=== PATIENT | female | born 1975 | race Caucasian/White ===

== ENCOUNTER 2024-05-29 10:06 | Inpatient (IN) ==
--- OUTSIDE RECORDS SUMMARY | 2024-05-29 10:13 | External Medical Summary | Summary of Care ---
Author Name Unknown Organization [facility] Address [address] [place] [address] Phone [phone] Care Team Providers Care Health And Wellness Advisor Name Role Phone Aiyana Bone MD Primary Care Provider + Reason for Referral * Precert (Within 10 days (routine)) - Pending Review Specialty Diagnoses / Procedures Referred By Contac t Referred To Contact Radiology Diagnoses Chest tightness Family history of premature CAD Procedures CT CARDIAC CALCIUM SCORE ONLY - CARD Iman Marroquin PA-C [address] [place] [id number] Phone: tel: fax: Referral ID Status Reason Start Date Expiration Date Visits Requested Visits Authorized [id number] Pending Review Precert 04/30/2024 [id number] Reason for Visit * Reason Comments Follow Up * Evaluate & Treat - Unlimited Visits (Within 30 days (routine)) - Authorized Specialty Diagnoses / Procedures Referred By Contact Referred To Contact Cardiovascular Medicine / Cardiology Diagnoses Family history of premature CAD Aiyana Bone MD [address] [place] [address] Phone: tel: fax: Referral ID Status Reason Start Date Expiration Date Visits Requested Visits Authorized [id number] Authorized Specialty Services Required 4 [phone] Encounter Details Date Type Department Care Team (Late st Contact Info) Description 04/29/2024 3:00 PM EST Office Visit Cardiology, [address] [place] [address] Iman Marroquin PA-C [address] [place] [address] Chest tightness*; Family history of premature CAD Allergies No known active allergiesdocumented as of this encounter (statuses as of 04/29/2024) Medications CALCIUM & MAGNESIUM CARBONATES 311-232 MG PO TABS Take by mouth . Active Multiple Vitamin (MULTI VITAMIN DAILY) TABS Take by mouth. Activ e Vitamin D, Cholecalciferol , 25 MCG (1000 UT) CAPS Take by mouth daily . Active Fish Oil 1000 MG Oral Capsule Take 1 Capsule by mouth in the morning. Active Vitamin C 1000 MG Oral Tablet Take 1 Tablet by mouth in the morning. Active Progesterone 200 MG/G TOP Cream Apply topically to affected area at bedtime. Apply one pump to inner wrists at bedtime. Active Fluticasone Propionate 50 MCG/ACT Nasal Suspension (Flonase)Indica tions:Acute sinusitis, recurrence not specified, unspecified location Administer 2 Sprays into each nostril in the morning. 9.9 mL 04/23/19 24 Active Triamcinolone Acetonide 0.1 % External Ointment (Aristocort)Ind ications:Perine al itching, female Apply topically to affected area 2 times a day. Apply to perineum 30 g 06/16/19 24 Active Azithromycin 250 MG Oral Tablet (Zithromax Z-Ye)Indicatio ns:Bronchitis, complicated Take two tablets by mouth on first day, then 1 tablet daily until gone 6 Tablet 02/10/20 24 025 Discontinued documented as of this encounter (statuses as of 04/29/2024) Active Problems Problem Noted Date Diagnosed Date Family history of premature CAD 11/06/2021 Atrial septal aneurysm 08/13/2021 documented as of this encounter (statuses as of 04/29/2024) Resolved Problems Problem Noted Date Diagnosed Date Resolved Date Vaginal itching 03/24/2019 08/13/2021 Overview (03/24/2019): X 5 years, left labial itching. Antepartum abnormal glucose tolerance of mother 02/28/2014 03/24/2019 Overview (02/28/2014): 1 hour Glucola 135 mg/ dl Declines 3 hour OGTT Advanced maternal age, primi , antepartum 02/01/2014 03/24/2019 Overview (02/01/2014): NOB at 35.6 weeks, transfer from [facility] due to breech presentation No pap smear or cultures from 1st trimester, declines to have them today No Anatomy scan was done at 20 weeks, accepts to have it done today due to also measuring small for GA NO GDM screening at 28 weeks, accepts to have it done today RH negative, declines Rhogam B rh negative, AB screen neg H&H , Plat 169 RPP: NR, HBCAG: Neg, U/A: WNL, HIV declined, QUad screening declijed, GDM screen declined AMA: no screening test was done Desired natural but accepts Csection Rh negative, antepartum 02/01/201403/09 Overview (07/10/2015): Has not recevied Rhgam at 28 weeks, Rh positive, declines Rhogam ICD-10 update of inactive term Breech presentation with problem 02/01/2014 03/24/2019 Overview (02/22/2014): Scheduled C section plan attached to current episode 02/22/2014 documented as of this encounter (statuses as of 04/29/2024) Immunizations Name Administration Dates Next Due COVID-19 mRNA, LNP-s, No Pre serve, 2-Dose Series ([employer]) 02/21/2021,07/28/2020,07/07/2020 Seasonal Influenza, PF, 6 M & above, IM , (FluLaval or Fluzone) 11/26/2021 TDAP (age 10 and older)(Boostrix) 07/16/2021 documented as of this encounter Social History Tobacco Use Types Packs/Day Years Used Date Smoking Tobacco: Never Smokeless Tobacco: Never Alcohol Use Standard Drinks/Week Comments Yes 0 (1 standard drink = 0.6 oz pur e alcohol) 1-2 drinks/day PHQ-2 Answer Date Recorded PHQ Adult Total Score 0 12/31/2023 Hunger Vital Sign Answer Date Recorded Worried About Running Out of Food in the Last Ye ar Never true 05/03/2019 Ran Out of Food in the Last Year Never true 05/03/2019 Comments No Sex and Gender Information Value Date Recorded Sex Assigned at Female 05/03/2019 12:46 PM EST Legal Sex Female 11:45 AM EDT Gender Identity Female 05/03/2019 12:46 PM EST Sexual Orientation Straight 05/03/2019 12 :46 PM EST 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 Intermittent palpitations, correlating with benign ventricular ectopy (rare) and SVT (rare) on ZIO 2. Atrial septal aneurysm on echo without evidence of shunt 3. Family history of premature coronary artery disease/sudden cardiac HPI: Charline Galarza is a 48 year old female who presents for cardiology follow up. Presents today overall feeling well. Notes occasional episodes of chest tightness, radiates to back. Is constant and can occur for weeks at a time. Mainly occurs at rest. Denies palpitations, shortness of breath, edema, PND, orthopnea, lightheadedness, syncope. Notes that she does weight training re gularly. Was cross country skiing recently and felt great. Mainly eats healthy diet. Nonsmoker. She is concerned about her cardiac health due to her family history. Notes aunt had elevated lipoprotein a. Family history: Father from [place] at age 44 Mother from pancreatic cancer at age 56 REVIEW OF SYSTEMS: See HPI for pertinent positives. All others negative other than those noted in the HPI. CONSTITUTIONAL: No change in weight, No weakness, No fatigue and No fevers, No sweats or chills. PULMONARY: No cough, sputum, or hemoptysis, No wheezing, No shortness of breath and No recent change in breathing. CARDIOVASCULAR: No chest pain, No dyspnea on exertion, No edema, No palpitations and No syncope. GASTROINTESTINAL: No abdominal pain, No change in bowel habits, No significant heartburn, No nausea, No vomiting, No diarrhea, No constipation, No blood in stools or black tarry stools. No dysphagia. HEMATOLOGIC: No abnormal bleeding and No bruising. NEUROLOGICAL: Normal balance, No headaches and No weakness. Review of patient's allergies indicates: No Known Allergies Current Outpatient Medications Medication Sig Dispense Refill Multiple Vitamin (MULTI VITAMIN DAILY) TABS Take by mouth. Vitamin D, Cholecalciferol, 25 MCG (1000 UT) CAPS Take by mouth daily . Fish Oil 1000 MG Oral Capsule Take 1 Capsule by mouth in the morning. Vitamin C 1000 MG Oral Tablet Take 1 Tablet by mouth in the morning. Progesterone 200 MG/G TOP Cream Apply topically to affected area at bedtime. Apply one pump to inner wrists at bedtime. Fluticasone Propionate 50 MCG/ACT Nasal Suspension (Flonase) Administer 2 Sprays into each nostril in the morning. 9.9 mL 0 Triamcinolone Acetonide 0.1 % External Ointment (Aristocort) Apply topically to affected area 2 times a day. Apply to perineum 30 g 0 CALCIUM & MAGNESIUM CARBONATES 311-232 MG PO TABS Take by mouth . (Patient not taking: Reported on 02/10/2024) No current facility-administered medications for this visit. Past Medical History: Diagnosis Date Atrial septal aneurysm 08/13/2021 Family history of pancreatic cancer 01/28/2024 Recommend MRI of pancreas in Jan 2025 Gallbladder polyp 01/28/2024 due for surveillance US in Jan 2025 Family History Problem Relation Name Age of Onset Cancer Mother 56 pancreatic cancer Heart attack Father 44 Stroke Grandmother (Maternal) 40s Diabetes Grandfather (Maternal) DM in his 70's Heart attack Grandmother (Paternal) 60s Prostate cancer Grandfather (Paternal) 90s Breast Cancer Aunt (Maternal) great aunt Social History Socioeconomic History Marital status: Occupational History Occupation: artist Tobacco Use Smoking status: Never Smokeless tobacco: Never Vaping Use Vaping status: Never Used Substance and Sexual Activity Alcohol use: Yes Comment: 1-2 drinks/day Drug use: No Sexual activity: Yes Partners: Male control/protection: Condom Social Needs Food Insecurity: No Food Insecurity (05/03/2019) Hunger Vital Sign Worried About Running Out of Food in the Last Year: Never true Ran Out of Food in the Last Year: Never true OBJECTIVE/PHYSICAL EXAMINATION: BP 138/88 | Pulse 80 | Wt 70.3 kg (155 lb) | BMI 25.79 kg/m | BSA 1.8 m Wt Readings from Last 3 Encounters: 04/29/24 70.3 kg (155 lb) 02/10/24 68.5 kg (151 lb) 01/28/24 68 kg (150 lb) General: No acute distress. A+Ox3. HEENT: Normocephalic. Atraumatic. PERRL. EOMI. Conjunctiva and sclera clear. NECK: No carotid bruits. No JVD. Carotid upstrokes are brisk. Heart: RRR. S1 and S2 noted. No murmur. No rubs or gallops. PMI non displaced. Lungs: Clear to auscultation. No wheezes. No rhonchi. No rales. Abdomen: Normal bowel sounds. Soft. Nontender. No masses or organomegaly. No abdominal bruits. Extremities: No edema. No clubbing or cyanosis. Pulses: radial=2/4, posterior tibial=2/4, dorsalis pedis = 2/4. NEURO: No focal deficits. PSYCH: Appropriate affect and insight. DATA Labs & Imaging Reviewed Below: EKG 04/29/24 NSR with sinus arrhythmia, 78 bpm Limited Echo 10/14/21 Microcavitation study performed. The primary indication after review was deemed appropriate and the examination was performed. Negative bubble study. No interatrial shunt present. o 07/2021 Patient had a min HR of 55 bpm, max HR of 167 bpm, and avg HR of 91 bpm. Predominant underlying rhythm was Sinus Rhythm. 1 run of Supraventricular Tachycardia occurred lasting 7 beats with a max rate of 167 bpm (avg 152 bpm). Isolated SVEs were rare (<1.0%), SVE Couplets were rare (<1.0%), and SVE Triplets were rare (<1.0%). Isolated VEs were rare (<1.0%), and no VE Couplets or VE Triplets were present. agree with above. No arrhythmias. No symptoms reported. Echo 07/18/21 The examination is adequate to evaluate the referral indication. Sinus rhythm / sinus tachycardia with rate in the range of 92-108 bpm present during the echocardiogram. The LV wall thickness is normal. The left ventricular wall motion is normal. The qualitative LV ejection fraction is 55-59% (normal). The left ventricular diastolic function is normal. The aortic valve has three leaflets. Mild aortic valve sclerosis is present. Aortic stenosis is absent. ASSESSMENT/PLAN: 48 year old female 1. Chest tightness 2. Family history of premature CAD - presents with occasional chest tightness that can occur for weeks at a time, possibly musculoskeletal - due to chest tightness and family history of premature CAD, recommend cardiac CT calcium score for risk assessment - cholesterol well controlled, A1C 5.3 on last labs - discussed conservative measures for muscle pain - no changes in medications today DISPOSITION: Follow up 1 year or sooner if symptoms worsen/fail to improve. All questions were answered to the patients satisfaction. Patient advised to report to ED with any and all emergencies. The patient agrees to the above plan and will call with additional questions or concerns. Iman Marroquin PA-C Cardiology, [address] [address] I spent a total of 40 minutes on the date of service in preparation, delivery, and documentation ofthe care provided to Charline Galarza excluding any time spent in the performance of separately billedservices. This chart was completed in part utilizing [employer] Speech Voice Recognition Software. Grammatical errors, random word insertions, pronoun errors, and incomplete sentences are an occasional consequence of this system due to software limitations, ambient noise, and hardware issues. Any formal questions or concerns about the content, text, or information contained within the body of this dictation should be directly addressed to the provider for clarification. documented in this encounter Procedure Notes * Sonu Yang MD - 04/29/2024 3:06 PM ESTAssociated Order(s): EKG REASON FOR STUDY: routine;routine CONCLUSIONS: Normal sinus rhythm with sinus arrhythmia Normal ECG When compared with ECG of 16-Jul-2021 13:37, No significant change was found Ventricular Rate: 78 Atrial Rate: 78 OK Interval: 116 QRS Duration: 88 QT/QTc: 368/419 ms P-R-T Vaughan: 80 : 85 : 83 degrees documented in this encounter Nursing Notes * Malathi Green CMA - 04/29/2024 2:58 PM EST Examination Room: 7 Name: Charline Galarza Date of : (1975) Reason for Visit: 1 year Interim Hospitalization(s): none Problems/Concerns: denied Chest Pain/SOB: post nasal drip, feeling in chest .denied SOB [facility] is a way you can talk to your provider online through e-mail. Would you like to sign up? I can activate it for you? ALREADY ACTIVE Patient was instructed to not get up on the exam table until directed and assisted by their provider; patient is to remain seated in the chair/ wheelchair/ exam table for fall prevention and safety reasons. Patient is aware to have assistance to step down off exam table with personnel. Patient voiced full comprehension of instructions. documented in this encounter Plan of Treatment Upcoming Encounters Date Type Department Care Team (Late st Contact Info) Description 06/22/2024 2:00 PM EDT Office Visit Gynecology/Obstetrics Sho Menendez [address] [place] [address] BackerAna CRNP [address] [place] [address] 07/04/2024 2:00 PM EDT Office Visit Gastroenterology, [facility] [address] [facility] [place] [address] Capo Irizarry CRNP [address] [facility] [place] [address] 05/26/2025 10:00 AM EDT Office Visit Cardiology, [facility] [address] [facility] [place] [address] Iman Marroquin PA-C [address] [facility] [place] [address] Scheduled Orders Name Type Priority Associated Diagnoses Orde r Schedule CT CARDIAC CALCIUM SCORE ONLY - CARD Medical Imaging Routine Chest tightness Family history of premature CAD Expected: 04/30/2024, Expires: 05/27/2025 Scheduled Procedures Name Priority Associated Diagnoses Date/Ti me COLONOSCOPY FLEXIBLE PROXIMA L DIAGNOSTIC Recall History of colonic polyps Health Maintenance Due Date Last Done Comments Hepatitis B Vaccine (1 of 3 - 19+ 3-dose series) 12/21/1994 HPV/Co-Test 12/21/2005 Cologuard 12/21/2020 Fecal Occult Blood Test 12/21/2020 Sigmoidoscopy 12/21/2020 Cervical Cancer Screening 03/24/2022 Pap Smear 03/24/2022 03/24/2019, 04/13/2014 COVID-19 Vaccine ( season) 2023 02/21/2021, 07/28/2020, 07/07/2020 Influenza Vaccine (FLU shot) (#1) 2023 11/26/2021 Mammogram 06/21/2024 06/22/2023, 09/0 08/2022, 11/04/2022, Additional history exists Depression Screening 12/30/2024 12/31/2023 Diabetes Screening 01/17/2027 01/18/2024, 0 10/06/2023, 11/18/2022, Additional history exists Colonoscopy 01/16/2028 01/15/2023, 01/15/2023 Colorectal Cancer Screening 01/16/2028 Lipid Panel 01/17/2029 01/18/2024, 11/07, 12/27/2020 DTap/Tdap Vaccines (2 - Td or Tdap) 07/17/2031 07/16/2021 RETIRED - COLONOSCOPY-EVERY 5 YRS AGES 18-100 Discontinued 01/15/2023, 01/15/2023 HPV (Gardasil) Vaccine Aged Out No lo nger eligible based on patient's age to complete this topic MENINGOCOCCAL (MENACTRA/MENVEO) Aged Out No longer eligible based on patient's age to complete this topic Meningitis B Vaccine (Bexsero/Trumemba) Aged Out No longer eligible based on patient's age to complete this topic Pneumococcal Vaccine: Pediatrics (0 to 5 Years) and At-Risk Patients (6 to 18 Years and 19+ Years) Aged Out No longer eligib le based on patient's age to complete this topic documented as of this encounter Medical Devices Not on filedocumented as of this encounter Procedures Procedure Name Priority Date/Time Associated Diagnosis Comments OK ECG ROUTINE ECG W/LEAST 12 LDS W/I&R Routine 04/29/2024 3:06 PM EST Chest tightness Family history of premature CAD documented in this encounter Results * EKG (04/29/2024 3:06 PM EST) 04/29/2024 3:06 PM EST Narrative Procedure Note Sonu Yang MD - 04/29/2024 3:06 PM EST REASON FOR STUDY: routine;routine CONCLUSIONS: Normal sinus rhythm with sinus arrhythmia Normal ECG When compared with ECG of 16-Jul-2021 13:37, No significant change was found Ventricular Rate: 78 Atrial Rate: 78 OK Interval: 116 QRS Duration: 88 QT/QTc: 368/419 ms P-R-T Vaughan: 80 : 85 : 83 degrees us Iman Marroquin PA-C EKG Final R esult [facility] CARDIOLOGY documented in this encounter Visit Diagnoses Diagnosis Chest tightness- Primary Other chest pain Family history of premature CAD Family history of ischemic heart disease documented in this encounter Care Teams Health And Wellness Advisor Relationship Specialty Start Date End Date Aiyana Bone MD [address] [place] [address] PCP - General Internal Medicine 05/03/19 documented as of this encounter"
--- OUTSIDE RECORDS SUMMARY | 2024-05-29 10:13 | External Medical Summary | Summary of Care ---
Author Name Unknown Organization [facility] Address [address] [place] [address] Phone [phone] Care Team Providers Care Supplier Quality Engineering Manager Name Role Phone Aiyana Bone MD Primary Care Provider + Reason for Visit * Reason Comments Congestion Cough Mostly at night Sore Throat Fatigue Encounter Details Date Type Department Care Team ([facility] st Contact Info) Description 02/10/2024 1:15 PM EST [facility] [address] [place] [address] Mary House PA-C [address] [place] [address] Bronchitis, complicated* Allergies No known active allergiesdocumented as of this encounter (statuses as of 02/10/2024) Medications CALCIUM & MAGNESIUM CARBONATES 311-232 MG PO TABS Take by mouth . Active Multiple Vitamin (MULTI VITAMIN DAILY) TABS Take by mouth. Act doretha Vitamin D, Cholecalciferol, 25 MCG (1000 UT) [...] Active Fluticasone Propionate 50 MCG/ACT Nasal Suspension (Flonase)Indicat ions:Acute sinusitis, recurrence not specified, unspecified location Administer 2 Sprays into each nostril in the morning. 9.9 mL 4 Active Triamcinolone Acetonide 0.1 % External Ointment (Aristocort)Genna cations:Perineal itching, female Apply topically to affected area 2 times a day. Apply to perineum 30 g 4 Active Azithromycin 250 MG Oral Tablet (Zithromax Z-Ye)Indication s:Bronchitis, complicated Take two tablets by mouth on first day, then 1 tablet daily until gone 6 Tablet 4 Active documented as of this encounter (statuses as of 02/10/2024) Active Problems Problem Noted Date Diagnosed Date Family history of premature CAD 11/06/2021 Atrial septal aneurysm 08/13/2021 documented as of this encounter (statuses as of 02/10/2024) Resolved Problems Problem Noted Date Diagnosed Date Resolved Date Vaginal itching 03/24/2019 08/13/2021 Overview (03/24/2019): X 5 years, left labial itching. Antepartum abnormal glucose tolerance of mother 02/28/2014 03/24/2019 Overview (02/28/2014): 1 hour Glucola 135 mg/ dl Declines 3 hour OGTT Advanced maternal age, primi , antepartum 02/01/2014 03/24/2019 Overview (02/01/2014): NOB at 35.6 weeks, transfer from [facility] due to breech presentation No pap smear [...] as of this encounter (statuses as of 02/10/2024) Immunizations Name Administration Dates Next Due COVID-19 mRNA, LNP-s, No Pre serve, 2-Dose Series (Pfizer) 02/21/2021,07/28/2020,07/07/2020 Seasonal Influenza, PF, 6 M & above, IM , (FluLaval or Fluzone) 11/26/2021 TDAP (age 10 and older)(Boostrix) 07/16/2021 documented as of this encounter Social History Tobacco Use Types Packs/Day Years Used Date Smoking Tobacco: Never Smokeless Tobacco: Never Tobacco Cessation:Counseling Given: Not Answered Alcohol Use Standard Drinks/Week Comments Yes 0 [...] Sign Reading Time Taken Comments Blood Pressure 116/62 02/10/2024 1:26 PM EST Pulse 103 02/10/2024 1:26 PM EST Temperature 36.7 C (98.1 F) 02/10/2024 1:26 PM ES T Respiratory Rate 18 02/10/2024 1:26 PM EST Oxygen Saturation 99% 02/10/2024 1:26 PM EST Inhaled Oxygen Concentration - - Weight 68.5 kg (151 lb) 02/10/2024 1:26 PM EST Height 165.1 cm (5' 5") 02/10/2024 1:26 PM EST Body Mass Index 25.13 02/10/2024 1:26 PM EST documented in this encounter Progress Notes * Mary House PA-C - 02/10/2024 8:58 PM EST Subjective Charline Galarza is a 48 year old female that presents for Congestion, Cough (Mostly at night ), Sore Throat, and Fatigue 48 y/o female presents c/o cough, congestion, sore throat, fatigue x 4 days. Pt states her son recently had walking pneumonia, is just getting over it, and now she started getting sick. She is worried she is also getting the pneumonia, so she wanted to get seen right away. Cough is sometimes productive of mucus. She has been using OTC zinc without relief. She denies known fevers, chills, chest pain, SOB, nausea, vomiting, diarrhea. Son was treated with zpack and amoxicillin. Allergies and medications reviewed and verified. Objective BP 116/62 | Pulse 103 | Temp 36.7 C (98.1 F) (Tympanic) | Resp 18 | Ht 1.651 m (5' 5") | Wt 68.5 kg (151 lb) | LMP 01/25/2024 | SpO2 99% | BMI 25.13 kg/m | BSA 1.77 m Body mass index is 25.13 kg/m. BP Readings from Last 3 Encounters: 02/10/24 116/62 01/28/24 96/68 01/11/24 122/74 Wt Readings from Last 3 Encounters: 02/10/24 68.5 kg (151 lb) 01/28/24 68 kg (150 lb) 01/11/24 68.2 kg (150 lb 4.8 oz) Physical Exam Vitals and nursing note reviewed. Constitutional: General: She is not in acute distress. Appearance: She is ill-appearing. HENT: Head: Normocephalic and atraumatic. Right Ear: Tympanic membrane, ear canal and external ear normal. Left Ear: Tympanic membrane, ear canal and external ear normal. Nose: Congestion present. Mouth/Throat: Mouth: Mucous membranes are moist. Pharynx: No oropharyngeal exudate or posterior oropharyngeal erythema. Eyes: General: No scleral icterus. Extraocular Movements: Extraocular movements intact. Conjunctiva/sclera: Conjunctivae normal. Pupils: Pupils are equal, round, and reactive to light. Cardiovascular: Rate and Rhythm: Normal rate and regular rhythm. Heart sounds: No murmur heard. No friction rub. No gallop. Pulmonary: Effort: Pulmonary effort is normal. Breath sounds: No stridor. Rhonchi present. No wheezing. Musculoskeletal: Cervical back: Neck supple. Lymphadenopathy: Cervical: No cervical adenopathy. Skin: General: Skin is warm and dry. Findings: No rash. Neurological: General: No focal deficit present. Mental Status: She is alert and oriented to person, place, and time. Psychiatric: Mood and Affect: Mood normal. Behavior: Behavior normal. Assessment and plan 1. Bronchitis, complicated - Azithromycin 250 MG Oral Tablet (Zithromax Z-Ye); Take two tablets by mouth on first day, then 1tablet daily until gone Dispense: 6 Tablet; Refill: 0 -given exposure will cover with zpack for PN -rest, fluids -OTC medications as you feel they help -to ER with acute worsening symptoms Follow up Follow Up: Return if symptoms worsen or fail to improve. Total time today including reviewing chart before the visit, pertinent labs, imaging reports, face to face time, and documentation time was 20 minutes. The above was discussed and understanding was expressed. Mary House PA-C documented in this encounter Nursing Notes * Izzy Painter MED ASSIST - 02/10/2024 1:28 PM EST Charline Galarza is a 48 year old female who presents to walk-in clinic today complaining of Chief Complaint Patient presents with Congestion Cough Mostly at night Sore Throat Fatigue Brief history:pt is here with chest congestion- cough mostly at night, sore throat and tiredness. Son had pneumonia 01/30/2024 Onset/duration Thursday . Tried zinc Effectiveness some Patient is accompanied by no one for today's visit. documented in this encounter Plan of Treatment Upcoming Encounters Date Type Department Care Team (Late st Contact Info) Description 04/29/2024 3:00 PM EST Office Visit Cardiology, [facility] [address] [place] [address] Iman Marroquin PA-C [address] [place] [address] 06/22/2024 2:00 PM EDT Office Visit Gynecology/Obstetrics [facility] [address] [place] [address] Ana Duarte CRNP [address] [place] [address] 07/04/2024 2:00 PM EDT Office Visit Gastroenterology, [facility] [address] [place] [address] Capo Irizarry CRNP [address] [place] [address] Scheduled Procedures Name Priority Associated Diagnoses Date/Ti [...] 5 Years) and At-Risk Patients (6 to 64 Years) Aged Out No longer eligible based on patient's age to complete this topic documented as of this encounter Medical Devices Not on filedocumented as of this encounter Visit Diagnoses Diagnosis Bronchitis, complicated- Primary Bronchitis, not specified as acute or chronic documented in this encounter Care Teams Supplier Quality Engineering Manager Relationship Specialty Start Date End Date Aiyana Bone MD [address] [place] [address] PCP - General Internal Medicine 05/03/19 documented as of this encounter
--- OUTSIDE RECORDS SUMMARY | 2024-05-29 10:13 | External Medical Summary | Summary of Care ---
Author Name Unknown Organization [facility] Address [address] [place] [address] Phone [phone] Care Team Providers Care Account Services Coordinator Name Role Phone Aiyana Bone MD Primary Care Provider + Reason for Visit * Reason Onset Date Comments Advice 02/09/2024 Appointment 02/09/2024 Encounter Details Date Type Department Care Team (Late st Contact Info) Description 02/09/2024 Telephone General Internal Medicine [facility] [address] [place] [address] Aiyana Bnoe MD [address] [place] [address] Advice; Appointment Allergies No known active allergiesdocumented as of this encounter (statuses as of 02/11/2024) Medications CALCIUM & MAGNESIUM CARBONATES 311-232 MG [...] Apply to perineum 30 g 4 Active documented as of this encounter (statuses as of 02/11/2024) Active Problems Problem Noted Date Diagnosed Date Family history of premature CAD 11/06/2021 Atrial septal aneurysm 08/13/2021 documented as of this encounter (statuses as of 02/11/2024) Resolved Problems Problem Noted Date Diagnosed Date Resolved Date Vaginal itching 03/24/2019 08/13/2021 Overview (03/24/2019): X 5 years, left labial itching. Antepartum abnormal glucose tolerance of mother 02/28/2014 03/24/2019 Overview (02/28/2014): 1 hour Glucola 135 mg/ dl Declines 3 hour OGTT Advanced maternal age, primi , antepartum 02/01/2014 03/24/2019 Overview (02/01/2014): NOB at 35.6 weeks, transfer from [employer] [facility] due to breech presentation No pap smear [...] as of this encounter (statuses as of 02/11/2024) Immunizations Name Administration Dates Next Due COVID-19 [...] on file documented as of this encounter Miscellaneous Notes * Telephone Encounter - Yolanda Constantino OSA - 02/11/2024 5:41 PM EST [facility] to [facility] on [facility]. * Telephone Encounter - Jyotsna Andrea OSA - 02/10/2024 8:59 AM EST No appts, assisted pt in reserving 1 pm time at [facility] in [place] * Telephone Encounter - Alysia Staples CMA - 02/09/2024 9:58 AM EST Patient needs acute visit to be assessed and have lungs listened to. * Telephone Encounter - Toya Harris OSA - 02/09/2024 9:13 AM EST Patient calling stating she is feeling sick, sore throat, cough. Has been taking care of her child who was diagnosed with pneumonia. No acute appts. She would like advice from a nurse if she should be seen. Please advise. documented in this encounter Plan of Treatment Upcoming Encounters Date Type Department Care Team (Late st Contact Info) Description 04/29/2024 3:00 PM EST Office Visit Cardiology, [facility] [address] [place] [address] Iman Marroquin PA-C [address] [facility] [place] [address] 06/22/2024 2:00 PM EDT Office Visit Gynecology/Obstetrics [facility] [address] [place] [address] Ana Duarte CRNP [address] [place] [address] 07/04/2024 2:00 PM EDT Office Visit Gastroenterology, [facility] [address] [place] [address] Capo Irizarry CRNP [address] [place] [address] Scheduled Procedures Name Priority Associated Diagnoses Date/Ti [...] shot) (#1) 2023 11/26/2021 Mammogram 06/21/2024 06/22/2023, 0908/2022, 11/04/2022, Additional history exists Depression Screening 12/30/2024 [...] Not on filedocumented as of this encounter Care Teams Account Services Coordinator Relationship Specialty Start Date End Date Aiyana Bone MD [address] [place], [place] [address] PCP - General Internal Medicine 05/03/19 documented as of this encounter
--- OUTSIDE RECORDS SUMMARY | 2024-05-29 10:13 | External Medical Summary | Summary of Care ---
Author Name Unknown Organization [facility] Address [address] [place] [address] Phone [phone] Care Team Providers Care Certified Nurse Operating Room Name Role Phone Aiyana Bone MD Primary Care Provider + Reason for Visit * Auth/Cert Specialty Diagnoses / Procedures Referred By Elias fajardo Referred To Contact Diagnoses Pain localized to upper abdomen Pain localized to upper abdomen [R10.10] Procedures EGD, W/ENDOSCOPIC US ESOPHAGOGASTRODUODENOSCOPY (EGD), FLEXIBLE, TRANSORAL, ENDOSCOPIC ULTRASOUND Juana Parker MD [address] [place] [address] Phone: tel: fax: ENDO OSS, Endoscopy Room [facility] [address] [place] [place] [address] Phone: tel: Referral ID Status Reason Start Date Expiration Date Visits Re quested Visits Authorized [id number] Encounter Details Date Type Department Care Team (Latest Contact Info) Description 01/28/2024 9:08 AM EST - 01/28/2024 11:09 AM [facility] Hospital Encounter ENDO OSSC, Endoscopy Room [facility] [address] [place] [place] [phone] Juana Parker MD [address] [place] [address] Various: UGI,UEUS Discharge Disposition: Home - Self Care Allergies No known active allergiesdocumented as of this encounter (statuses as of 01/28/2024) Medications CALCIUM & MAGNESIUM CARBONATES 311-232 MG [...] as of this encounter (statuses as of 01/28/2024) Active Problems Problem Noted Date Diagnosed Date Family history of premature CAD 11/06/2021 Atrial septal aneurysm 08/13/2021 documented as of this encounter (statuses as of 01/28/2024) Resolved Problems Problem Noted Date Diagnosed Date Resolved Date Vaginal itching 03/24/2019 08/13/2021 Overview (03/24/2019): X 5 years, left labial itching. Antepartum abnormal glucose tolerance of mother 02/28/2014 03/24/2019 Overview (02/28/2014): 1 hour Glucola 135 mg/ dl Declines 3 hour OGTT Advanced maternal age, primi , antepartum 02/01/2014 03/24/2019 Overview (02/01/2014): NOB at 35.6 weeks, transfer from [facility] due to breech presentation No pap smear [...] as of this encounter (statuses as of 01/28/2024) Immunizations Name Administration Dates Next Due COVID-19 mRNA, LNP-s, No Pre serve, 2-Dose Series (Sodraft) 02/21/2021,07/28/2020,07/07/2020 Seasonal Influenza, PF, 6 M & [...] Sign Reading Time Taken Comments Blood Pressure 96/68 01/28/2024 10:48 AM EST Pulse 88 01/28/2024 10:48 AM EST Temperature 36.2 C (97.2 F) 01/28/2024 10:[address] Respiratory Rate 17 01/28/2024 10:48 AM EST Oxygen Saturation 99% 01/28/2024 10:48 AM EST Inhaled Oxygen Concentration - - Weight 68 kg (150 lb) 01/28/2024 9:24 AM EST Height 165.1 cm (5' 5") 01/28/2024 9:24 AM EST Body Mass Index 24.96 01/28/2024 9:24 AM EST documented in this encounter H&P Notes * Juana Parker MD - 01/28/2024 9:36 AM EST Endoscopy Pre-Procedure Assessment Name: Charline Galarza Date: 01/28/2024 Time: 9:36 AM Procedure(s): Endoscopic Ultrasound; with Indication(s) of abdominal pain Endoscopy Pre-Procedure Assessment: Prior to the procedure, the patient was identified. The patient's history, medications and allergies were reviewed as per the Anesthesia Assessment. The patient is competent. The risks and benefits of the proposed procedure and the planned sedation were discussed with the patient. All questions were answered and informed consent for the procedure was obtained. Ht 1.651 m (5' 5") | Wt 68 kg (150 lb) | LMP 12/25/2023 (Exact Date) | BMI 24.96 kg/m | BSA 1.77 m Review of patient's allergies indicates: No Known Allergies Prior to Admission medications Medication Sig Last Dose Discont. Fluticasone Propionate 50 MCG/ACT Nasal Suspension (Flonase) Administer 2 Sprays into each nostril in the morning. Past Week Fish Oil 1000 MG Oral Capsule Take 1 Capsule by mouth in the morning. 01/22/2024 Morning Vitamin C 1000 MG Oral Tablet Take 1 Tablet by mouth in the morning. 01/22/2024 Morning Multiple Vitamin (MULTI VITAMIN DAILY) TABS Take by mouth. 01/22/2024 Morning Vitamin D, Cholecalciferol, 25 MCG (1000 UT) CAPS Take by mouth daily . 01/22/2024 Morning CALCIUM & MAGNESIUM CARBONATES 311-232 MG PO TABS Take by mouth . 01/22/2024 Morning Triamcinolone Acetonide 0.1 % External Ointment (Aristocort) Apply topically to affected area 2 times a day. Apply to perineum Progesterone 200 MG/G TOP Cream Apply topically to affected area at bedtime. Apply one pump to inner wrists at bedtime. Physical Exam: Mental Status Examination: alert and oriented. Airway Examination: normal oropharyngeal airway and neck mobility. Respiratory Examination: clear to auscultation. CV Examination: Regular rate and rythm, no murmurs. ASA Grade: II - A patient with mild systemic disease. After reviewing the risks and benefits, the patient was deemed in satisfactory condition to undergothe procedure. The anesthesia plan was to use sedation. Patient was explained in detail regarding risks, benefits, limitations and alternatives of the above endoscopic procedure. Risks of intravenous sedation used for procedure were also explained. Risks include, but not limited to perforation, bleeding, infection, respiratory distress, cardiac arrest and . Risk of acute pancreatitis and necrosis if ERCP is done. Patient is also aware about the possibility of missed lesion. Patient's questions were answered. The patient verbalized understandingthe information and agreed to undergo the procedure. Discussed with the patient that he/she is at an explicit higher risk for complications in comparison to other patients Juana Parker MD 01/28/2024 documented in this encounter Procedure Notes * Capo Irizarry CRNP - 01/28/2024 9:48 AM ESTAssociated Order(s): UPPER GI ENDOSCOPY [facility] Patient Name: Charline Galarza Procedure Date: 01/28/2024 9:48 AM Date of : 1975 Admit Type: Outpatient Note Status: Finalized Date of : 1975 Admit Type: Outpatient Age: 48 Room: [facility] Gender: Female Note Status: Finalized Procedure: Upper GI endoscopy Indications: Abdominal pain Providers: Juana Parker MD (Doctor), Conor Santizo RN Referring MD: Capo Irizarry NP (Referring MD), Aiyana Bone MD (Referring MD) Medicines: Propofol per Anesthesia Complications: No immediate complications. Procedure: Pre-Anesthesia Assessment: - Prior to the procedure, a History and Physical was performed, and patient medications, allergies and sensitivities were reviewed. The patient's tolerance of previous anesthesia was reviewed. - The risks and benefits of the procedure and the sedation options and risks were discussed with the patient. All questions were answered and informed consent was obtained. - Patient identification and proposed procedure were verified prior to the procedure by the physician and the nurse. The procedure was verified in the procedure room. - Pre-procedure physical examination revealed no contraindications to sedation. After obtaining informed consent, the endoscope was passed under direct vision. All instruments were visually inspected immediately before and after removal from the patient to ensure they are fully intact. Throughout the procedure, the patient's blood pressure, pulse, and oxygen saturations were monitored continuously. The upper GI endoscopy was accomplished without difficulty. The patient tolerated the procedure well. The GIF-H180 Endoscope ([id number]) was introduced through the mouth, and advanced to the second part of duodenum. Findings & Specimens: The examined esophagus was normal. The entire examined stomach was normal. Biopsies were taken with a cold forceps for Helicobacter pylori testing. Verification of patient identification for the specimen was done by the physician and nurse using the patient's name and date. The pathology specimen was placed into Bottle B. The duodenal bulb and second portion of the duodenum were normal. Biopsies for histology were taken with a cold forceps for evaluation of celiac disease. The pathology specimen was placed into BottleA. Impression: - Normal esophagus. - Normal stomach. Biopsied. - Normal duodenal bulb and second portion of the duodenum. Biopsied. Recommendation: - Await pathology results. - Perform an upper endoscopic ultrasound (UEUS) today. Juana Parker MD 01/28/2024 10:20:20 AM This report has been signed electronically. * Capo Irizarry CRNP - 01/28/2024 9:47 AM ESTAssociated Order(s): UPPER ENDOSCOPIC U/S [facility] Patient Name: Charline Galarza Procedure Date: 01/28/2024 9:47 AM Date of : 1975 Admit Type: Outpatient Note Status: Finalized Date of : 1975 Admit Type: Outpatient Age: 48 Room: [facility] Gender: Female Note Status: Finalized Procedure: Upper EUS Indications: Abdominal pain, Family history of pancreas cancer Providers: Juana Parker MD (Doctor), Conor Santizo RN Referring MD: Capo Irizarry NP (Referring MD), Aiyana Bone MD (Referring MD) Medicines: Propofol per Anesthesia Complications: No immediate complications. Procedure: Pre-Anesthesia Assessment: - Prior to the procedure, a History and Physical was performed, and patient medications, allergies and sensitivities were reviewed. The patient's tolerance of previous anesthesia was reviewed. - The risks and benefits of the procedure and the sedation options and risks were discussed with the patient. All questions were answered and informed consent was obtained. - Patient identification and proposed procedure were verified prior to the procedure by the physician and the nurse. The procedure was verified in the procedure room. - Pre-procedure physical examination revealed no contraindications to sedation. After obtaining informed consent, the endoscope was passed under direct vision. All instruments were visually inspected immediately before and after removal from the patient to ensure they are fully intact. Throughout the procedure, the patient's blood pressure, pulse, and oxygen saturations were monitored continuously.The upper EUS was accomplished without difficulty. The patient tolerated the procedure well. The Endoscope was introduced through the mouth, and advanced to the second part of duodenum. Findings & Specimens: ENDOSONOGRAPHIC FINDING: : There was no sign of significant endosonographic abnormality in the ampulla. There was no sign of significant endosonographic abnormality in the common bile duct. The maximum diameter of the duct was 5 mm. A 4 mm hyperechoic polyp was identified endosonographically in the gallbladder. There was no sign of significant endosonographic abnormality in the visualized portion of the liver. Homogeneous parenchyma was identified. There was no sign of significant endosonographic abnormality in the entire pancreas. The pancreatic duct measured up to 2 mm in diameter. Impression: - There was no sign of significant pathology in the ampulla. - There was no sign of significant pathology in the common bile duct. - A 4 mm polyp was found in the gallbladder. No stones. - There was no evidence of significant pathology in the visualized portion of the liver. - There was no sign of significant pathology in the entire pancreas. - No specimens collected. Recommendation: - Discharge patient to home. - Surveillance ultrasound of the GB polyp in one year. - Surveillance MRI of the pancreas in one year. - Return to referring physician. Juana Parker MD 01/28/2024 10:33:19 AM This report has been signed electronically. documented in this encounter Nursing Notes * Martha Anders RN - 01/28/2024 11:02 AM EST Patient is alert, pain free, and tolerating po fluids prior to discharge. Patient has been visited by Dr. Parker. Patient has received and demonstrates understanding of discharge instructions. Patient ambulated to private auto accompanied by endo staff. * Martha Anders RN - 01/28/2024 10:43 AM EST 1033 Pt arrived to PACU from ENDO. Lying on left side, + cough. Encouraged deep breathing and swallow. 1044 Doctor to bedside to discuss procedure findings with pt. Pt then assisted to sit up on cart, po fluids given. * Donavan Flores RN - 01/28/2024 10:30 AM EST See anesthesia record for medication administered during procedure. Donavan Flores RN Specimen(s) and location(s) verified with physician post procedure 10:30 AM Donavan W Mark, RN Pre cleaning of scope at the bedside started by supervisor pyrotechnic loading. * Rachelle Ford RN - 01/28/2024 9:48 AM EST The following pt discharge instructions reviewed with pt prior to prodedure: No driving today. No alcohol today. No signing of legal documents. Rest as much as possible today and can return to normal activities tomorrow. No operating any heavy equipment today. Diet as tolerated. Pt verbalized understanding. * Rachelle Ford RN - 01/28/2024 9:35 AM EST Patient or the Patients Legally Authorized Emergency Management Coordinator has been advised that (1) the Patient meets criteria for testing and (2) the administration of anesthesia, radiation or other imaging agents may have a harmful impact to an unborn child. The Patient or Patients Representativewere offered the opportunity to ask questions as to necessity of such testing and potential outcomes. Consent for testing has been declined. documented in this encounter Plan of Treatment Upcoming Encounters Date Type Department Care Team (Late st Contact Info) Description 04/29/2024 3:00 PM EST Office Visit Cardiology, [facility] [address] [place] [address] Iman Marroquin PA-C [address] [place] [address] [address] [place] [address] 06/22/2024 2:00 PM EDT Office Visit [facility]necology[facility] [address] [facility] [address] [facility] Duarte CR[facility] [address] [facility] [address] 07/04/2024 2:00 PM EDT Office Visit Gastroenterology, [facility] [address] [facility] [place] [address] Capo Irizarry CRNP [address] [place] [address] Pending Results Name Type Priority Associated Diagnoses Date /Time SURGICAL PATHOLOGY Pathology Routine Pain localized to upper abdomen 01/28/2024 10:21 AM EST Scheduled Orders Name Type Priority Associated Diagnoses Orde r Schedule SURGICAL PATHOLOGY Pathology Routine Pain localized to upper abdomen Release Upon Ordering for 1 Occurrences starting 01/28/2024, 1 completed Scheduled Procedures Name Priority Associated Diagnoses Date/Ti me ESOPHAGOGASTRODUODENOSCOPY ( EGD), FLEXIBLE, TRANSORAL, ENDOSCOPIC ULTRASOUND Pain localized to upper abdomen 01/28/2024 10:10 AM EST COLONOSCOPY FLEXIBLE PROXIMA L DIAGNOSTIC Recall History [...] Additional history exists Depression Screening 12/30/2024 12/31/2023 Colonoscopy 01/16/2028 01/15/2023, 01/15/2023 Colorectal Cancer Screening [...] Procedure Name Priority Date/Time Associated Diagnosis Comments UPPER GI ENDOSCOPY 01/28/2024 9: 48 AM EST UPPER ENDOSCOPIC U/S 01/28/2024 9:47 AM EST documented in this encounter Results * UPPER GI ENDOSCOPY (01/28/2024 9:48 AM EST) 01/28/2024 9:48 AM EST Narrative Procedure Note Capo Irizarry CRNP - 01/28/2024 9:48 AM EST [facility] Patient Name: Charline Galarza Procedure Date: 01/28/2024 9:48 AM Date of : 1975 Admit Type: Outpatient Note Status:Finalized Date of : 1975 Admit Type: Outpatient Age: 48 Room: [facility] Gender: Female Note Status: Finalized Procedure: Upper GI endoscopy Indications: Abdominal pain Providers: Juana Parker MD (Doctor), Conor Santizo RN Referring MD: Capo Irizarry NP (Referring MD), Aiyana Bone MD (Referring MD) Medicines: Propofol per Anesthesia Complications: No immediate complications. Procedure: Pre-Anesthesia Assessment: - Prior to the procedure, a History and Physicalwas performed, and patient medications, allergies and sensitivities werereviewed. The patient's tolerance of previous anesthesia was reviewed. - The risks and benefits of the procedure and thesedation options and risks were discussed with the patient. All questions wereanswered and informed consent was obtained. - Patient identification and proposed procedurewere verified prior to the procedure by the physician and the nurse. The procedure wasverified in the procedure room. - Pre-procedure physical examination revealed nocontraindications to sedation. After obtaining informed consent, the endoscope waspassed under direct vision. All instruments were visually inspected immediatelybefore and after removal from the patient to ensure they are fully intact. Throughout the procedure, the patient's bloodpressure, pulse, and oxygen saturations were monitored continuously. The upper GI endoscopywas accomplished without difficulty. The patient tolerated the procedurewell. The GIF-H180 Endoscope ([id number]) was introduced through the mouth, andadvanced to the second part of duodenum. Findings & Specimens: The examined esophagus was normal. The entire examined stomach was normal. Biopsies were taken with acold forceps for Helicobacter pylori testing. Verification of patient identification for the specimen wasdone by the physician and nurse using the patient's name and date. The pathology specimen wasplaced into Bottle B. The duodenal bulb and second portion of the duodenum were normal.Biopsies for histology were taken with a cold forceps for evaluation of celiac disease. The pathologyspecimen was placed into Bottle A. Impression: - Normal esophagus. - Normal stomach. Biopsied. - Normal duodenal bulb and second portion of theduodenum. Biopsied. Recommendation: - Await pathology results. - Perform an upper endoscopic ultrasound (UEUS)today. Juana Parker MD 01/28/2024 10:20:20 AM This report has been signed electronically. us Capo FERNANDEZ GASTRO UPPER Final Resu lt * UPPER ENDOSCOPIC U/S (01/28/2024 9:47 AM EST) 01/28/2024 9:47 AM EST Narrative Procedure Note Capo Irizarry CRNP - 01/28/2024 9:47 AM EST [facility] Patient Name: Charline Galarza Procedure Date: 01/28/2024 9:47 AM Date of : 1975 Admit Type: Outpatient Note Status:Finalized Date of : 1975 Admit Type: Outpatient Age: 48 Room: [facility] Gender: Female Note Status: Finalized Procedure: Upper EUS Indications: Abdominal pain, Family history of pancreas cancer Providers: Juana Parker MD (Doctor), Conor Santizo RN Referring MD: Capo Irizarry NP (Referring MD), Aiyana Abdi MD (Referring MD) Medicines: Propofol per Anesthesia Complications: No immediate complications. Procedure: Pre-Anesthesia Assessment: - Prior to the procedure, a History and Physicalwas performed, and patient medications, allergies and sensitivities werereviewed. The patient's tolerance of previous anesthesia was reviewed. - The risks and benefits of the procedure and thesedation options and risks were discussed with the patient. All questions wereanswered and informed consent was obtained. - Patient identification and proposed procedurewere verified prior to the procedure by the physician and the nurse. The procedure wasverified in the procedure room. - Pre-procedure physical examination revealed nocontraindications to sedation. After obtaining informed consent, the endoscope waspassed under direct vision. All instruments were visually inspected immediatelybefore and after removal from the patient to ensure they are fully intact. Throughout the procedure, the patient's bloodpressure, pulse, and oxygen saturations were monitored continuously.The upper EUS wasaccomplished without difficulty. The patient tolerated the procedure well. The Endoscopewas introduced through the mouth, and advanced to the second part of duodenum. Findings & Specimens: ENDOSONOGRAPHIC FINDING: : There was no sign of significant endosonographic abnormality in theampulla. There was no sign of significant endosonographic abnormality in thecommon bile duct. The maximum diameter of the duct was 5 mm. A 4 mm hyperechoic polyp was identified endosonographically in thegallbladder. There was no sign of significant endosonographic abnormality in thevisualized portion of the liver. Homogeneous parenchyma was identified. There was no sign of significant endosonographic abnormality in theentire pancreas. The pancreatic duct measured up to 2 mm in diameter. Impression: - There was no sign of significant pathology in theampulla. - There was no sign of significant pathology in thecommon bile duct. - A 4 mm polyp was found in the gallbladder. Nostones. - There was no evidence of significant pathology inthe visualized portion of the liver. - There was no sign of significant pathology in theentire pancreas. - No specimens collected. Recommendation: - Discharge patient to home. - Surveillance ultrasound of the GB polyp in oneyear. - Surveillance MRI of the pancreas in one year. - Return to referring physician. Juana Parker MD 01/28/2024 10:33:19 AM This report has been signed electronically. us Capo Irizarry MANAGER BUILDING GASTRO UPPER Final Resu lt documented in this encounter Visit Diagnoses Diagnosis Pain localized to upper abdomen Abdominal pain, other specified site documented in this encounter Administered Medications Inactive Administered Medications - up to 3 most recent administrations Medication Order MAR Action Action Date Dose Rate Site Isolyte-S pH 7.4 infusion Intravenous, at 100 mL/hr, Plasma-LYTE 148, isolyte-S, and isolyte-S pH 7.4 are considered equivalent - including for MAR barcode scanning., CONTINUOUS, Starting on Eliz 01/28/24 at 1000, Until Eliz 01/28/24 at 1510, Pre-Op Continue from Pre-Op 01/28/2024 10:00 AM EST 100 mL/hr New Bag 01/28/2024 9:47 AM EST 100 mL/hr documented in this encounter Active and Recently Administered Medications Times are shown in EST. Continuous Medication Order 01/26/2024 01/27/2024 01/28/2024 Isolyte-S pH 7.4 infusion Intravenous, at 100 mL/hr, Plasma-LYTE 148, isolyte-S, and isolyte-S pH 7.4 are considered equivalent - including for MAR barcode scanning., CONTINUOUS, Starting on Eliz 01/28/24 at 1000, Until Eliz 01/28/24 at 1510, Pre-Op 0947 (New Bag - Prov ider: Rachelle Ford RN)1000 (Continue from Pre-Op - Provider: Olayinka Doan CRNA)1030 (Anes Intra-Op Fluid - Provider: Olayinka Doan CRNA) documented in this encounter Care Teams Certified Nurse Operating Room Relationship Specialty Start Date End Date Aiyana Bone MD [address] [place] [address] PCP - General Internal Medicine 05/03/19 documented as of this encounter
--- OUTSIDE RECORDS SUMMARY | 2024-05-29 10:13 | External Medical Summary | Summary of Care ---
Author Name Unknown Organization [facility] Address [address] [place] [address] Phone [phone] Care Team Providers Care Gas Brazer Name Role Phone Aiyana Bone MD Primary Care Provider + Reason for Visit * Reason Onset Date Comments Health Maintenance 01/28/2024 Encounter Details Date Type Department Care Team (Late st Contact Info) Description 01/28/2024 Telephone General Internal Medicine [facility] [address] [facility] [place] [address] Aiyana Bone MD [address] [place] [address] Health Maintenance Allergies No known active allergiesdocumented as of [...] (02/01/2014): NOB at 35.6 weeks, transfer from [facility] [facility] due to breech presentation No pap smear [...] encounter Miscellaneous Notes * Telephone Encounter - SteffenSupaMARYLU bartlett - 01/28/2024 3:28 PM EST Care Gaps Comprehensive Care Outreach Last Office/Telemedicine Visit: 12/31/2023 (in office), Visit date not found (telemedicine) Next Office Visit: Visit date not found Hemoglobin AIC Results: Lab Results Component Value Date/Time HEMOGLOBIN A1C - [facility] 5.3 01/18/2024 07:51 AM BP Readings from Last 1 Encounters: 01/28/24 96/68 Reviewed Health Maintenance below: Health Maintenance Topic Date Due Hepatitis B Vaccine (1 of 3 - 19+ 3-dose series) Never done Cervical Cancer Screening 03/24/2022 Influenza Vaccine (FLU shot) (1) 11/08/2023 COVID-19 Vaccine ( season) 2023 Mammogram 06/21/2024 Pap already scheduled Mamm Jojo Ov Patient in surgery today Care Gap Outreach Action Taken: Outreach not indicated documented in this encounter Plan of Treatment Upcoming Encounters Date Type Department Care Team (Late st Contact Info) Description 04/29/2024 3:00 PM EST Office Visit Cardiology, [facility] [address] [facility] [place] [address] Iman Marroquin PA-C [address] [place] [address] 06/22/2024 2:00 PM EDT Office Visit Gynecology/Obstetrics [facility] [address] [facility] [place] [address] Ana Duarte CRNP 132 [facility] [place] [address] 07/04/2024 2:00 PM EDT Office Visit Gastroenterology, [facility] [address] [facility] [place] [address] aCpo Irizarry CRNP [address] [place] [address] Scheduled Procedures Name Priority Associated Diagnoses Date/Ti [...] filedocumented as of this encounter Care Teams Gas Brazer Relationship Specialty Start Date End Date Aiyana Bone MD [address] [place] [address] [place] [address] PCP - General Internal Medicine 05/03/19 documented as of this encounter
--- OUTSIDE RECORDS SUMMARY | 2024-05-29 10:13 | External Medical Summary | Summary of Care ---
Author Name Unknown Organization [facility] Address [address] [place] [address] Phone [phone] Care Team Providers Care Administration Internship Name Role Phone Aiyana Bone MD Primary Care Provider + Reason for Visit * Reason Comments Sinus Problem Encounter Details Date Type Department Care Team (Late st Contact Info) Description 05/10/2024 1:40 PM EST Office Visit General Internal Medicine [facility] [address] [place] [address] Shahbaz Camilo, 200 [place] [address] Nasal sinus congestion* Allergies No known active allergiesdocumented as of this encounter (statuses as of 05/10/2024) Medications Multiple Vitamin (MULTI VITAMIN DAILY) TABS Take [...] Apply to perineum 30 g 4 Active Magnesium 100 MG Oral Capsule Take 1 Capsule by mouth in the morning. Active Azelastine HCl 0.1 % Nasal Solution (Astelin) Administer 2 Sprays into nostril every night at bedtime. Active methylPREDNISol one 4 MG Oral Tablet Therapy Pack (Medrol Dosepack)Indica tions:Nasal sinus congestion follow package directions 21 Tablet 5 Active CALCIUM & MAGNESIUM CARBONATES 311-232 MG PO TABS Take by mouth . 05/11/19 25 Discontin ued(Medic ation List Clean Up) documented as of this encounter (statuses as of 05/10/2024) Active Problems Problem Noted Date Diagnosed Date Family history of premature CAD 11/06/2021 Atrial septal aneurysm 08/13/2021 documented as of this encounter (statuses as of 05/10/2024) Resolved Problems Problem Noted Date Diagnosed Date Resolved Date Vaginal itching 03/24/2019 08/13/2021 Overview (03/24/2019): X 5 years, left labial itching. Antepartum abnormal glucose tolerance of mother 02/28/2014 03/24/2019 Overview (02/28/2014): 1 hour Glucola 135 mg/ dl Declines 3 hour OGTT Advanced maternal age, primi , antepartum 02/01/2014 03/24/2019 Overview (02/01/2014): NOB at 35.6 weeks, transfer from [employer] due to breech presentation No pap smear [...] as of this encounter (statuses as of 05/10/2024) Immunizations Name Administration Dates Next Due COVID-19 mRNA, LNP-s, No Pre serve, 2-Dose Series (OpenSpark) 02/21/2021,07/28/2020,07/07/2020 Seasonal Influenza, PF, 6 M & [...] Sign Reading Time Taken Comments Blood Pressure 106/56 05/10/2024 1:40 PM EST Pulse 102 05/10/2024 1:40 PM EST Temperature 36.7 C (98.1 F) 05/10/2024 1:40 PM ES T Respiratory Rate 16 05/10/2024 1:40 PM EST Oxygen Saturation 96% 05/10/2024 1:40 PM EST Inhaled Oxygen Concentration - - Weight 69.1 kg (152 lb 6.4 oz) 05/10/2024 1:40 P M EST Height 165.1 cm (5' 5") 05/10/2024 1:40 PM EST Body Mass Index 25.36 05/10/2024 1:40 PM EST documented in this encounter Progress Notes * Shahbaz Camilo, DO - 05/10/2024 1:53 PM EST Subjective Charline Galarza is a 48 year old female. Chief Complaint Patient presents with Sinus Problem Text in this note was generated using an ambient documentation service. I discussed the use of a device to record and summarize our discussion today. All persons present during the encounter consented to its use. HPI: History of Present Illness The patient, with a history of sinus issues, presents with worsening symptoms over the past month. States increased sinus pressure. Mostly in the maxillary region. Has noted some postnasal drip. No overt cough. Ears feel congested but no pain. No fever chills She has tried various treatments including a neti pot, saline spray, and a 10-day course of Flonase, but continues to experience daily painand post-nasal drip. Has held back on the Flonase to take a break. Currently using Neti pot. Has used occasional Sudafed. No shortness of breath, wheezing or chest congestion. No loss of taste/smell.No known sick contacts PMH: Patient Active Problem List Diagnosis Atrial septal aneurysm Family history of premature CAD Current Outpatient Medications Medication Sig Dispense Refill [...] day. Apply to perineum 30 g 0 Magnesium 100 MG Oral Capsule Take 1 Capsule by mouth in the morning. No current facility-administered medications for this visit. Past Medical History: Diagnosis Date Atrial septal aneurysm 08/13/2021 Family history of pancreatic cancer 01/28/2024 Recommend MRI of pancreas in Jan 2025 Gallbladder polyp 01/28/2024 due for surveillance US in Jan 2025 Past Surgical History: Procedure Laterality Date DELIVERY 02/28/2014 COLONOSCOPY 2009 wnl COLONOSCOPY, DIAGNOSTIC (RECTUM) 01/15/2023 few small and large mouthed diverticula/biopsies show hyperplastic polyps/recall 5 years/COLONOSCOPY FLEXIBLE PROXIMAL DIAGNOSTIC performed by Alex Carlson MD at [facility] DENTAL SURGERY PROCEDURE NEC wisdom teeth EGD, W/ENDOSCOPIC US 01/28/2024 biopsies normal/ESOPHAGOGASTRODUODENOSCOPY (EGD), FLEXIBLE, TRANSORAL, ENDOSCOPIC ULTRASOUND performed by Juana Parker MD at [facility] Review of patient's allergies indicates: No Known Allergies Family History Problem Relation Name Age of Onset Cancer Mother 56 pancreatic cancer Heart attack Father 44 Stroke Grandmother (Maternal) 40s Diabetes Grandfather (Maternal) DM in his 70's Heart attack Grandmother (Paternal) 60s Prostate cancer Grandfather (Paternal) 90s Breast Cancer Aunt (Maternal) great aunt Family Status Relation Status Mo Fa at age 44 Sis Alive MGMA MGFA PGMA at age 60s PGFA MAUNT Alive Social History Socioeconomic History Marital status: Spouse name: Not on file Number of children: Not on file Years of education: Not on file Highest education level: Not on file Occupational History Occupation: artist Tobacco Use Smoking status: Never Smokeless tobacco: Never Vaping Use Vaping status: Never Used Substance and Sexual Activity Alcohol use: Yes Comment: 1-2 drinks/day Drug use: No Sexual activity: Yes Partners: Male control/protection: Condom Other Topics Concern Not on file Social History Narrative Not on file Social Needs Financial Resource Strain: Not on file Food Insecurity: No Food Insecurity (05/03/2019) Hunger Vital Sign Worried About Running Out of Food in the Last Year: Never true Ran Out of Food in the Last Year: Never true Transportation Needs: Not on file Social Connections: Not on file Housing Stability: Not on file Review of Systems Constitutional: Negative for chills and fever. HENT: Positive for congestion, postnasal drip, sinus pressure and sinus pain. Negative for ear discharge, ear pain, facial swelling, sore throat and trouble swallowing. Eyes: Negative for photophobia and itching. Respiratory: Negative for apnea, cough, shortness of breath and wheezing. Cardiovascular: Negative for chest pain and palpitations. Gastrointestinal: Negative for abdominal distention, abdominal pain, nausea and vomiting. Genitourinary: Negative for dysuria and frequency. Musculoskeletal: Negative for arthralgias and myalgias. Skin: Negative for pallor and rash. Neurological: Negative for dizziness, light-headedness and headaches. Psychiatric/Behavioral: Negative for sleep disturbance. The patient is not nervous/anxious. Objective BP 106/56 (BP Site: Left Arm, BP Position: Sitting, BP Cuff Size: Regular) | Pulse 102 | Temp 98.1 F (36.7 C) (Tympanic) | Resp 16 | Ht 5' 5" (1.651 m) | Wt 152 lb 6.4 oz (69.1 kg) | SpO2 96% | BMI 25.36 kg/m | BSA 1.78 m Physical Exam Constitutional: General: She is not in acute distress. Appearance: She is not ill-appearing. HENT: Head: Normocephalic and atraumatic. Right Ear: Tympanic membrane, ear canal and external ear normal. Left Ear: Tympanic membrane, ear canal and external ear normal. Nose: Congestion and rhinorrhea present. Mouth/Throat: Mouth: Mucous membranes are moist. Pharynx: Oropharynx is clear. Comments: Some clear postnasal drainage Eyes: General: No scleral icterus. Extraocular Movements: Extraocular movements intact. Conjunctiva/sclera: Conjunctivae normal. Pupils: Pupils are equal, round, and reactive to light. Cardiovascular: Rate and Rhythm: Normal rate and regular rhythm. Pulses: Normal pulses. Heart sounds: Normal heart sounds. No murmur heard. No friction rub. No gallop. Pulmonary: Effort: Pulmonary effort is normal. Breath sounds: Normal breath sounds. No wheezing, rhonchi or rales. Abdominal: General: Bowel sounds are normal. There is no distension. Palpations: Abdomen is soft. There is no mass. Tenderness: There is no abdominal tenderness. There is no right CVA tenderness or left CVA tenderness. Musculoskeletal: General: No deformity. Normal range of motion. Cervical back: Normal range of motion and neck supple. Right lower leg: No edema. Left lower leg: No edema. Lymphadenopathy: Cervical: No cervical adenopathy. Skin: General: Skin is warm and dry. Coloration: Skin is not jaundiced. Findings: No rash. Neurological: General: No focal deficit present. Mental Status: She is oriented to person, place, and time. Cranial Nerves: No cranial nerve deficit. Sensory: No sensory deficit. Motor: No weakness. Psychiatric: Mood and Affect: Mood normal. Behavior: Behavior normal. ASSESSMENT/PLAN: Nasal sinus congestion (Primary) - methylPREDNISolone 4 MG Oral Tablet Therapy Pack (Medrol Dosepack); follow package directions Plan: Patient presents to office with increased sinus pain/pressure. Does not have any fever chills. Does not appear consistent with bacterial sinusitis at the moment Counseled patient would consider stopping Flonase. Trial of switch to mometasone/Nasonex. Two sprays in each nostril in the morning. Would alternate this with Astepro 2 sprays in each nostril in the evening May continue saline spray or Neti pot as needed Will add Medrol Ye to help with inflammation/decongestion Counseled to keep well hydrated Should reach out to office if any worsening symptoms or if she were to develop fever chills or other signs of acute infection Follow Up: Return if symptoms worsen or fail to improve, for Follow up next routine with PCP as scheduled. | For: Follow up next routine with PCP as scheduled | Check-out note: Follow up as needed Shahbaz Camilo DO documented in this encounter Nursing Notes * Alysia Staples CMA - 05/10/2024 1:40 PM EST Patient presents today with complaints of sinus irritation/pressure for the past month on and off. She has been using a netti pot and flonase spray. She has sinus congestion and pressure, having green/yellow mucus when blowing her nose. Slight cough due to drainage in her throat. documented in this encounter Plan of Treatment Upcoming Encounters Date Type Department Care Team (Late st Contact Info) Description 05/26/2024 7:00 AM EDT Imaging Radiology [facility] 132 [facility] [place] [address] 06/22/2024 2:00 PM EDT Office Visit Gynecology/Obstetrics [facility] 132 [facility] [place] [address] Ana Duarte CRNP [address] [place] [address] 07/04/2024 2:00 PM EDT Office Visit Gastroenterology, [facility] 132 [facility] [place] [address] Capo Irizarry CRNP [address] [place] [address] 05/26/2025 10:00 AM EDT Office Visit Cardiology, [facility] 132 [facility] [place] [address] Iman Marroquin PA-C [address] [place] [address] [place] [address] Scheduled Procedures Name Priority Associated Diagnoses Date/Ti [...] as of this encounter Visit Diagnoses Diagnosis Nasal sinus congestion- Primary Other diseases of nasal cavity and sinuses documented in this encounter Care Teams Administration Internship Relationship Specialty Start Date End Date Aiyana Bone MD [address] [place] [address] PCP - General Internal Medicine 05/03/19 documented as of this encounter
--- OUTSIDE RECORDS SUMMARY | 2024-05-29 10:13 | External Medical Summary | Summary of Care ---
Author Name Unknown Organization [facility] Address [address] [place] [address] Phone [phone] Care Team Providers Care Addiction Therapist Name Role Phone Aiyana Bone MD Primary Care Provider + Reason for Visit * Reason Onset Date Comments Mycode Lab Reorder 05/02/2024 Encounter Details Date Type Department Care Team (Late st Contact Info) Description 05/02/2024 Orders Only Outcomes Research Department [address] [place], [place] [id number] Barbara Chen CHRA MyCode Research Other*[id number]* Allergies No known active allergiesdocumented as of this encounter (statuses as of 05/02/2024) Medications CALCIUM & MAGNESIUM CARBONATES 311-232 MG [...] as of this encounter (statuses as of 05/02/2024) Active Problems Problem Noted Date Diagnosed Date Family history of premature CAD 11/06/2021 Atrial septal aneurysm 08/13/2021 documented as of this encounter (statuses as of 05/02/2024) Resolved Problems Problem Noted Date Diagnosed Date Resolved Date Vaginal itching 03/24/2019 08/13/2021 Overview (03/24/2019): X 5 years, left labial itching. Antepartum abnormal glucose tolerance of mother 02/28/2014 03/24/2019 Overview (02/28/2014): 1 hour Glucola 135 mg/ dl Declines 3 hour OGTT Advanced maternal age, primi , antepartum 02/01/2014 03/24/2019 Overview (02/01/2014): NOB at 35.6 weeks, transfer from [employer] due to breech presentation No pap smear or cultures from 1st trimester, declines to have them today No Anatomy scan was done at 20 weeks, accepts to have it done today due to also measuring small for GA NO GDM screening at 28 weeks, accepts to have it done today RH negative, declines Rhogam B rh negative, AB screen neg H&H /38, Plat 169 RPP: NR, HBCAG: Neg, U/A: [...] as of this encounter (statuses as of 05/02/2024) Immunizations Name Administration Dates Next Due COVID-19 [...] on file documented as of this encounter Progress Notes * Barbara Chen CHRA - 05/02/2024 11:40 AM EST MyCode lab reordered. documented in this encounter Plan of Treatment Upcoming Encounters Date Type Department Care Team (Late st Contact Info) Description 06/22/2024 2:00 PM EDT Office Visit Gynecology/Obstetrics [facility] [address] [place] [address] BackerAna CRNP [address] [place] [address] 07/04/2024 2:00 PM EDT Office Visit Gastroenterology, [facility] [address] [facility] [place] [address] Capo Irizarry CRNP [address] [place] [address] 05/26/2025 10:00 AM EDT Office Visit Cardiology, [facility] 132 [facility] [place] [address] Iman Marroquin PA[facility]C [facility] [id number] Scheduled Orders Name Type Priority Associated Diagnoses Orde r Schedule MYCODE INITIAL ADULT Lab Routine MyCode Research Other*[id number] Expected: 05/02/2024 (Approximate), Expires: 05/22/2025 Scheduled Procedures Name Priority Associated Diagnoses Date/Ti [...] shot) (#1) 2023 11/26/2021 Mammogram 06/21/2024 06/22/2023, 090 08/2022, 11/04/2022, Additional history exists Depression Screening [...] as of this encounter Visit Diagnoses Diagnosis MyCode Research Other*[id number] Primary documented in this encounter Care Teams Addiction Therapist Relationship Specialty Start Date End Date Aiyana Bone MD [address] [place] [address] PCP - General Internal Medicine 05/03/19 documented as of this encounter
--- OUTSIDE RECORDS SUMMARY | 2024-05-29 10:14 | External Medical Summary ---
Author Name Unknown Address Unknown Organization K01:[facility] [place] [address] [facility] [place] [address] Laboratory Report Ordering Provider Test Date Status NIKKO ERICKSON 01/18/2024 07:51:01 Final Observation Date Value Abnormality Reference (Units ) Status Triglyceride 01/18/2024 07:51:01 52 <=174 ( mg/dL) Final Triglyceride Reference Range s (mg/dL):
<150 Acceptable
150-174 Borderline high
175-499 High
>=500 Very high Cholesterol 01/18/2024 07:51:01 143 <200 (mg /dL) Final Total Cholesterol Reference Ranges (mg/dL):
<200 Desirable
200-239 Borderline high
>=240 High HDL 01/18/2024 07:51:01 74 >49 (mg/dL ) Final HDL Cholesterol Reference Ra nges (mg/dL):
>=60 High (Desirable)
<50 Low (Undesirable) For Females
<40 Low (Undesirable) For Males NON-HDL CHOLESTEROL 01/18/2024 07:51:01 69 <=159 (mg/dL) Final Non-HDL Cholesterol Referenc e Range (mg/dL):
<100 Target level for high risk ASCVD patient
<130 Optimal for general population
130-159 Near optimal for general population
160-189 Borderline High
190-219 High
>=220 Very High LDL, (calculated) 01/18/2024 07:51:01 59 <= 129 (mg/dL) Final LDL Cholesterol Reference Ra nges (mg/dL):
<70 Target level for high risk ASCVD patient
<100 Optimal for general population
100-129 Near optimal for general population
130-159 Borderline high
160-189 High
>=190 Very high Performing Location [facility] [place] [address] [facility] [address]
--- OUTSIDE RECORDS SUMMARY | 2024-05-29 10:14 | External Medical Summary ---
Author Name Unknown Address Unknown Organization : Laboratory Report Ordering Provider Test Date Status SUKHJINDER SOTO 01/18/2024 16:19:57 Final Observation Date Value Abnormality Reference (Units ) Status PANCREATIC ELASTASE-1 01/18/2024 16:19:57 646 >200 (mcg/g) Final E-1 mcg/g feces Interpretati on
<100 Severe exocrine pancreatic
insufficiency
100-200 Mild to moderate exocrine
pancreatic insufficiency
>200 Normal
Test performed by [facility]
[id number] [facility],
[place] [address]

Armament Installer: Ernestina Drummond MD,PHD,DANELLE
Test Reported by [facility],
[facility],
[address] [place], [place]
Sang Dunn M.D., Ph.D., Director of Laboratories
, [facility] [id number] Performing Location
--- OUTSIDE RECORDS SUMMARY | 2024-05-29 10:14 | External Medical Summary | Summary of Care ---
Author Name Unknown Organization [facility] Address [address] [place] [address] Phone [phone] Care Team Providers Care Online Advertising Analyst Name Role Phone Aiyana Bone MD Primary Care Provider + Reason for Referral * Evaluate & Treat - Unlimited Visits (Within 30 days (routine)) - Authorized Specialty Diagnoses / Procedures Referred By Contact Referred To Contact Cardiovascular Medicine / Cardiology Diagnoses Family history of premature CAD Aiyana Bone MD [address] [place] [phone] Referral ID Status Reason Start Date Expiration Date Visits Requested Visits Authorized [id number] Authorized Specialty Services Required 4 [phone] Question Answer Referral Priority Within 30 days (routine) Where should this appointment be scheduled? [facility] To which of the following clinics are you referring your patient? General Cardiology Clinic Comments Family hx of FL, father had in 40's. Wants follow up and also cardiac CT. Thanks. Reason for Visit * Reason Comments Physical-Exam Encounter Details Date Type Department Care Team (Late st Contact Info) Description 12/31/2023 3:20 PM EDT Office Visit General Internal Medicine [facility] [address] [place] [id number] Aiyana Bone MD [address] [place] [address] Routine medical exam*; Family history of premature CAD; Left foot pain; Lipid screening; Encounter for screening examination for impaired glucose regulation and diabetes mellitus Allergies No known active allergiesdocumented as of this encounter (statuses as of 12/31/2023) Medications Medication Sig Dispensed Refills Start Date End Date Status CALCIUM & MAGNESIUM CARBONATES 311-232 MG PO TABS Take by mouth . Active Multiple Vitamin (MULTI VITAMIN DAILY) TABS Take by mouth. Active Vitamin D, Cholecalciferol, 25 MCG (1000 UT) [...] Active Fluticasone Propionate 50 MCG/ACT Nasal Suspension (Flonase)Indicati ons:Acute sinusitis, recurrence not specified, unspecified location Administer 2 Sprays into each nostril in the morning. 9.9 mL 04/23/2023 Active Triamcinolone Acetonide 0.1 % External Ointment (Aristocort)Indic ations:Perineal itching, female Apply topically to affected area 2 times a day. Apply to perineum 30 g 06/16/2023 Active Omeprazole 20 MG Oral Capsule Delayed Release (PriLOSEC)Indicat ions:Gastroesopha geal reflux disease without esophagitis Take 1 Capsule by mouth in the morning. 1 hour before the first meal of the day. 30 Capsule 3 10/06/2023 4 Discontinue d(Patient preference/ discontinua tion) documented as of this encounter (statuses as of 12/31/2023) Active Problems Problem Noted Date Diagnosed Date Family history of premature CAD 11/06/2021 Atrial septal aneurysm 08/13/2021 documented as of this encounter (statuses as of 12/31/2023) Resolved Problems Problem Noted Date Diagnosed Date Resolved Date Vaginal itching 03/24/2019 08/13/2021 Overview: X 5 years, left labial itching. Antepartum abnormal glucose tolerance of mother 02/28/2014 03/24/2019 Overview: 1 hour Glucola 135 mg/ dl Declines 3 hour OGTT Advanced maternal age, primi , antepartum 02/01/2014 03/24/2019 Overview: NOB at 35.6 weeks, transfer [facility] due to breech presentation No pap smear [...] but accepts Csection Rh negative, antepartum 02/01/201403/09 Overview: Has not recevied Rhgam at 28 weeks, Rh positive, declines Rhogam ICD-10 update of inactive term Breech presentation with problem 02/01/2014 03/24/2019 Overview: Scheduled C section plan attached to current episode 02/22/2014 documented as of this encounter (statuses as of 12/31/2023) Immunizations Name Administration Dates Next Due COVID-19 mRNA, LNP-s, No Pre serve, 2-Dose Series ([email or web address]) 02/21/2021,07/28/2020,07/07/2020 Seasonal Influenza, PF, 6 M & above, IM , (FluLaval or Fluzone) 11/26/2021 TDAP (age 10 and older)(Boostrix) 07/16/2021 documented as of this encounter Social History Tobacco Use Types Packs/Day Years Used Date Smoking Tobacco: Never Smokeless Tobacco: Never Tobacco Cessation:Counseling Given: No Alcohol Use Standard Drinks/Week Comments Yes 0 (1 standard drink = 0.6 oz pur e alcohol) 1-2 drinks/day PHQ-2 Answer Date Recorded PHQ Adult Total Score 0 08/28/2022 Hunger Vital Sign Answer Date Recorded Worried About Running Out of Food in the Last Ye ar Never true 05/03/2019 Ran Out of Food in the Last Year Never true 05/03/2019 Utilities Answer Date Recorded Do you have trouble paying y our heating, water, or electric bill? (Adult - for ages 18 years and over) Not on file 08/25/2023 Is your family able to pay t he heat, water, or electric bill? (Household - for ages 0-17 years) Not on file 08/25/2023 Does your family have access to good internet? (Household - for ages 0-17 years) Not on file 08/25/2023 Social Connections Answer Date Recorded How often do you feel lonely or isolated from those around you? (Adult - for ages 18 years and over) Not on file 08/25/2023 Sex and Gender Information Value Date Recorded Sex Assigned at Female 05/03/2019 12:46 PM EST Gender Identity Female 05/03/2019 12:46 PM EST Sexual Orientation Straight 05/03/2019 12 :46 PM EST Job Start Date Occupation Industry Not on file Not on file Not on file documented as of this encounter Last Filed Vital Signs Vital Sign Reading Time Taken Comments Blood Pressure 116/68 12/31/2023 3:36 PM EDT Pulse 89 12/31/2023 3:36 PM EDT Temperature 36.4 C (97.6 F) 12/31/2023 3:36 PM ED T Respiratory Rate 20 12/31/2023 3:36 PM EDT Oxygen Saturation 98% 12/31/2023 3:36 PM EDT Inhaled Oxygen Concentration - - Weight 69.4 kg (152 lb 14.4 oz) 12/31/2023 3:36 PM EDT Height 165.1 cm (5' 5") 12/31/2023 3:36 PM EDT Body Mass Index 25.44 12/31/2023 3:36 PM EDT documented in this encounter Progress Notes * Aiyana Bone MD - 12/31/2023 3:54 PM EDT HPI: Charline Galarza is a 48 year old female who presents with: Chief Complaint Patient presents with Physical-Exam Patient is here for the physical.Chart reviewed with the patient including current meds, last labs and HM. No acute event since we saw patient last time including no recent fall or injuries. Patient has been seeing Podiatry for bilateral foot pain worse on the left side and was told that she does have fasciitis with some fibrotic tissue. Patient was advised to use orthotics and foot support which has been helping her. Does have strong family history of FL in 40s. Her father in 40s with FL and she is concerned about cardiac risk and is interested with following up with Cardiology and also getting cardiac CT for calcium score. Has been working on portion control, balanced diet and regular exercise. Denies any chestpain/sob/palpitation/swealling in the legs. Denies any cough/sob/wheezing/chestpain. Denies nausea,vomiting, diarrhoea, constipation, abdominal pain or blood in stool. Denies heart burn but some upper abdominal discomfort and we discussed about taking PPI daily for 2to 4 weeks on empty stomach and let us know how she is doing with that. Patient was advised to get ultrasound of the abdomen few months back but she never got it. Has good appetite. No urinary symptoms. Have some stress related to recent motor new house. Patient Active Problem List Diagnosis Atrial septal aneurysm Family history of premature CAD Current Outpatient Medications Medication Sig Dispense Refill CALCIUM & MAGNESIUM CARBONATES 311-232 MG PO TABS Take by mouth . Multiple Vitamin (MULTI VITAMIN DAILY) TABS Take [...] day. Apply to perineum 30 g 0 No current facility-administered medications for this visit. The patient's medication list was reviewed and updated as needed. Review of patient's allergies indicates: No Known Allergies Past Medical History: Diagnosis Date Atrial septal aneurysm 08/13/2021 Social History Socioeconomic History Marital status: Occupational History Occupation: artist Tobacco Use Smoking status: Never Smokeless tobacco: Never Vaping Use Vaping status: Never Used Substance and Sexual Activity Alcohol use: Yes Comment: 1-2 drinks/day Drug use: No Sexual activity: Yes Partners: Male control/protection: Condom Social Determinants of Health Food Insecurity: No Food Insecurity (05/03/2019) Hunger Vital Sign Worried About Running Out of Food in the Last Year: Never true Ran Out of Food in the Last Year: Never true Social Connections Family History Problem Relation Name Age of Onset Cancer Mother 56 pancreatic cancer Heart attack Father 44 Stroke Grandmother (Maternal) 40s Diabetes Grandfather (Maternal) DM in his 70's Heart attack Grandmother (Paternal) 60s Prostate cancer Grandfather (Paternal) 90s Breast Cancer Aunt (Maternal) great aunt All system negative except as per hpi. OBJECTIVE: BP 116/68 (BP Site: Left Arm, BP Position: Sitting, BP Cuff Size: Regular) | Pulse 89 | Temp 36.4 C (97.6 F) (Tympanic) | Resp 20 | Ht 1.651 m (5' 5") | Wt 69.4 kg (152 lb 14.4 oz) | LMP 12/25/2023 (Exact Date) | SpO2 98% | No | BMI 25.44 kg/m | BSA 1.78 m PHYSICAL EXAM: HEENT: PERRLA, EOMI, anicteric sclera, b/l tympanic membrane is pearly white, no erythema, no pharyngeal erythema, no lymphadenopathy, neck supple CVS: RRR, no murmurs, rubs or gallops, s1 s 2normal. RESP: clear to auscultation, no wheezing or crackles ABD: soft, NT/ND EXT: no edema, cyanosis, peripheral pulses palpable bilaterally Left foot- heel discomfort on palpation and fibrotic area on planter surface with tenderness+,callus+ No large joint swelling, no redness, range of motion normal. Skin normal. Gait normal. Mood stable No focal weakness ASSESSMENT AND PLAN: Routine medical exam (Primary) Regular diet and exercise discussed with the patient. Importance of doing exercise 3 times a week for 30 minutes discussed. Taking OTC vitamins and Calcium with vitamin D discussed with the patient. Pt does wear a seat belt and sees Makeup Sales Advisor and Dentist every year. Fall precautions advised to the patient. Importance of drinking more water atleast 6-8 glasses per day discussed with the patient. Family history of premature CAD - CARDIOLOGY REFERRAL OP Left foot pain Have changes of possible fascitis, fibrotic tissue and cyst in foot. Advised by us and podiatry that she will benefit from having Orthotics. Lipid screening - LIPID PANEL WITH DIRECT LDL IF TG IS HIGH; Future; Expected date: 12/31/2023 Encounter for screening examination for impaired glucose regulation and diabetes mellitus - HEMOGLOBIN A1C; Future; Expected date: 12/31/2023 Follow Up: Return in about 1 year (around 12/30/2024) for Return with Physician. | For: Return withPhysician Aiyana Bone MD documented in this encounter Nursing Notes * Fidelia [facility] MED ASSIST - 12/31/2023 3:27 PM EDT Charline Galarza presents for annual physical exam. She had her women's health appointment last year and is scheduled for her PAP in the spring. Medications & HM reviewed. She declines her flu vaccine today but will get it in the future. documented in this encounter Plan of Treatment Upcoming Encounters Date Type Department Care Team (Late st Contact Info) Description 06/22/2024 2:00 PM EDT [facility] [address] [place] [address] Ana Duarte CRNP [address] [place] [id number] Scheduled Orders Name Type Priority Associated Diagnoses Orde r Schedule HEMOGLOBIN A1C Lab Routine Encounter for screening examination for impaired glucose regulation and diabetes mellitus Expected: 12/31/2023 (Approximate), Expires: 12/30/2024 LIPID PANEL WITH DIRECT LDL IF TG IS HIGH Lab Routine Lipid screening Expected: 12/31/2023, Expires: 12/30/2024 Scheduled Procedures Name Priority Associated Diagnoses Date/Ti me COLONOSCOPY FLEXIBLE PROXIMA L DIAGNOSTIC Recall History of colonic polyps Scheduled Referrals Name Type Priority Associated Diagnoses Orde r Schedule CARDIOLOGY REFERRAL OP Referral Within 30 days (routine) Family history of premature CAD Ordered: 12/31/2023 Health Maintenance Due Date Last Done Comments Hepatitis B Vaccine (1 of 3 - 19+ 3-dose series) 12/21/1994 HPV/Co-Test 12/21/2005 Cologuard 12/21/2020 Fecal Occult Blood Test 12/21/2020 Sigmoidoscopy 12/21/2020 Cervical Cancer Screening 03/24/2022 Pap Smear 03/24/2022 03/24/2019, 04/13/2014 Influenza Vaccine (FLU shot) (#1) 2023 11/26/2021 COVID-19 Vaccine ( season) 2024 02/21/2021, 07/28/2020, 07/07/2020 Postponed from 11/08/2023 (Unavailable) Mammogram 06/21/2024 06/22/2023, 0908/2022, 11/04/2022, Additional history exists Depression Screening 12/30/2024 12/31/2023 Diabetes Screening 10/05/2026 10/06/2023, 0 11/18/2022, 07/23/2021, Additional history exists Lipid Panel 11/19/2027 11/18/2022, 12/27/2020 Colonoscopy 01/16/2028 01/15/2023, 01/15/2023 Colorectal Cancer Screening 01/16/2028 DTap/Tdap Vaccines (2 - Td or Tdap) [...] as of this encounter Visit Diagnoses Diagnosis Routine medical exam- Primary Routine general medical examination at a health care facility Family history of premature CAD Family history of ischemic heart disease Left foot pain Pain in limb Lipid screening Screening for lipoid disorders Encounter for screening examination for impaired glucose regulation and diabetes mellitus documented in this encounter Care Teams Online Advertising Analyst Relationship Specialty Start Date End Date Aiyana Bone MD [address] [place] [address] PCP - General Internal Medicine 05/03/19 documented as of this encounter
--- OUTSIDE RECORDS SUMMARY | 2024-05-29 10:14 | External Medical Summary ---
Author Name Unknown Address Unknown Organization : Laboratory Report Ordering Provider Test Date Status SUKHJINDER SOTO 01/18/2024 16:21:30 Final Observation Date Value Abnormality Reference (Units ) Status result / comment 01/18/2024 16:21:30 Not Detected Not Detected Final Antimicrobials, proton pump inhibitors, and bismuth
preparations inhibit H. pylori and ingestion up to
two weeks prior to testing may cause false negative
results. If clinically indicated the test should
be repeated on a new specimen obtained two weeks
after discontinuing treatment.

Test Performed at:
[facility]
[address] [facility]
[place] [address]
Sang Dunn M.D., Ph.D.,Director of Laboratories Performing Location
--- OUTSIDE RECORDS SUMMARY | 2024-05-29 10:14 | External Medical Summary | Summary of Care ---
Author Name Unknown Organization [facility] Address [address] [place] [address] Phone [phone] Care Team Providers Care Safety Manager Name Role Phone Aiyana Bone MD Primary Care Provider + Reason for Visit * Reason Comments NEW PATIENT New pt ref by Dr Fior schuler for abdominal pain. Pt c/o heartburn and bloating along with the abd pain. BM's are normal. * Evaluate & Treat - Unlimited Visits (Within 30 days (routine)) - Authorized Specialty Diagnoses / Procedures Referred By Elias fajardo Referred To Contact Gastroenterology Diagnoses Abdominal pain, generalized Aiyana Bone MD [address] [place] [address] Phone: tel: fax: Referral ID Status Reason Start Date Expiration Date Visits Requested Visits Authorized [id number] Authorized Specialty Services Required [phone] Encounter Details Date Type Department Care Team (Late st Contact Info) Description 01/11/2024 1:00 PM EST Office Visit Gastroenterology, [facility] [address] [place] [address] Capo Irizarry CRNP [address] [place] [address] Pain localized to upper abdomen*; Family history of pancreatic cancer; Loose stools Allergies No known active allergiesdocumented as of [...] (02/01/2014): NOB at 35.6 weeks, transfer from [facility] due to breech presentation No pap smear [...] mRNA, LNP-s, No Pre serve, 2-Dose Series ([employer]) 02/21/2021,07/28/2020,07/07/2020 Seasonal Influenza, PF, 6 M & [...] years and over) Not on file 08/25/2023 Comments No Sex and Gender Information Value [...] Sign Reading Time Taken Comments Blood Pressure 122/74 01/11/2024 1:01 PM EST Pulse 105 01/11/2024 1:01 PM EST Temperature 36.6 C (97.9 F) 01/11/2024 1:01 PM ES T Respiratory Rate - - Oxygen Saturation - - Inhaled Oxygen Concentration - - Weight 68.2 kg (150 lb 4.8 oz) 01/11/2024 1:01 P M EST Height - - Body Mass Index 25.01 12/31/2023 3:36 PM EDT documented in this encounter Patient Instructions * Patient Instructions* Capo Irizarry CRNP - 01/11/2024 1:51 PM EST - Stool test for H Pylori - US ABDOMEN LIMITED (rules out gallbladder disease) - EGD, FLEXIBLE, DIAGNOSTIC (rule out reflux and ulcers, gastritis) - US ENDOSCOPIC; Future; Expected date: 04/12/2024 (because your mom had pancreas cancer at a young - PANCREATIC ELASTASE (This is a stool test looking for pamncreas insufficiency causes bloating, gassiness) - We'll also get a blood test for Celiac Disease. - You will order and do the Tri-smart breath test for bacterial overgrowth. - Consider no supplements. documented in this encounter Progress Notes * Capo Irizarry CRNP - 01/28/2024 12:13 PM EST EUS on 01/28/24 w recommendations for: - Surveillance ultrasound of the GB polyp in one year. - Surveillance MRI of the pancreas in one year. Both added to PMH * Capo Irizarry CRNP - 01/11/2024 1:12 PM EST Consult requested by REF: AIYANA BONESH [address] [place] [address] (office) [phone] (fax) CC: Abdominal Pain HPI: 48 year old female pt of Aiyana Bone MD with a hx of allergies, Atrial Septal Aneurysm who presents today for abdominal pain, bloating, heartburn. She has always had a "sensitive digestive system." She is a vegetarian and was on a macrobiotic diet for years (not currently). Symptoms are "grating in the stomach," pointing to the epigastric area, "under the ribs" and feeling like food gets stuck in the upper abdomen, w burping. Avoids large meals. Gets a gnawing feeling that is worse on an empty stomach, but after eating feels like the food is stuck in the upper abdomen." Gets a lot of fullness, a feeling of the abdomen being swollen. Had one episode of very severe pain that lasted 10 - 15 minutes, just above the umbilicus, "going straight across." No unintentional weight loss. No blood in BMs. Difficultly sleeping, some anxiety. Stomach worsens when anxious. Decreased energy lately. Sees [facility], taking supplements. [place] much better when was on antibiotics. [place] better when on clear liquids for the colonoscopy prep. No fam hx of gallbladder dx + mom young (50's) of pancreatic cancer. 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 She grew up in [facility] [place] [place] and moved to [place] to go to grad school at [employer] (Health In[employer]), and stayed in the area. Diagnostic Testing: Screening Colonoscopy in Jan 2023: one 7mm polyp removed, sigmoid diverticulosis. ROS: No lightheadedness, dizziness No fevers, chills, sweats No vision loss, eye pain, redness No oral ulcers No chest pain, palpitations, syncope No cough, shortness of breath, exertional dyspnea No rashes or other skin lesions No new joint pain, swelling, myalgias No edema No bleeding tendencies or excessive bruising A total of 12 systems were reviewed, all others (-). ALLERGIES: Review of patient's allergies indicates: No Known Allergies PMH/PSH/Soc Hx reviewed, significant for: Past Medical History: Diagnosis Date Atrial septal aneurysm 08/13/2021 Past Surgical History: Procedure Laterality Date DELIVERY 02/28/2014 COLONOSCOPY 2009 wnl COLONOSCOPY, DIAGNOSTIC (RECTUM) 01/15/2023 few small and large mouthed diverticula/biopsies show hyperplastic polyps/recall 5 years/COLONOSCOPY FLEXIBLE PROXIMAL DIAGNOSTIC performed by Alex Carlson MD at ENDOSCOPY [facility] DENTAL SURGERY PROCEDURE NEC wisdom teeth Social History Socioeconomic History Marital status: Occupational [...] Last Year: Never true Social Connections Family history reviewed and significant for: Family History Problem Relation Name Age of Onset Cancer Mother 56 pancreatic cancer Heart attack Father 44 Stroke Grandmother (Maternal) 40s Diabetes Grandfather (Maternal) DM in his 70's Heart attack Grandmother (Paternal) 60s Prostate cancer Grandfather (Paternal) 90s Breast Cancer Aunt (Maternal) great aunt Current Outpatient Medications Medication Sig Dispense Refill Triamcinolone Acetonide 0.1 % External Ointment (Aristocort) Apply topically to affected area 2 times a day. Apply to perineum 30 g 0 Fluticasone Propionate 50 MCG/ACT Nasal Suspension (Flonase) Administer 2 Sprays into each nostril in the morning. 9.9 mL 0 Progesterone 200 MG/G TOP Cream Apply topically to affected area at bedtime. Apply one pump to inner wrists at bedtime. Fish Oil 1000 MG Oral Capsule Take 1 Capsule by mouth in the morning. Vitamin C 1000 MG Oral Tablet Take 1 Tablet by mouth in the morning. Multiple Vitamin (MULTI VITAMIN DAILY) TABS Take by mouth. Vitamin D, Cholecalciferol, 25 MCG (1000 UT) CAPS Take by mouth daily . CALCIUM & MAGNESIUM CARBONATES 311-232 MG PO TABS Take by mouth . No current facility-administered medications for this visit. EXAM: BP 122/74 | Pulse 105 | Temp 36.6 C (97.9 F) | Wt 68.2 kg (150 lb 4.8 oz) | LMP 12/25/2023 (Exact Date) | BMI 25.01 kg/m | BSA 1.77 m GENERAL: 48 year old female well developed and well nourished in no acute distress SKIN: no rashes, ulcers, or spider angiomata HEENT: normocephalic, sclera clear, pharynx normal NECK: supple, no lymphadenopathy, no masses or thyroid enlargement LUNGS: clear to auscultation anterior and posterior HEART: regular rate & rhythm, no murmurs and no gallops ABDOMEN: normo-active bowel sounds, soft, mildly tender in the epigastric and Left upper/mid abdomen, non-distended no masses, no hepatosplenomegaly, no rebound or guarding, no bruits EXTREMITIES: no palmar erythema, no edema, no skin discoloration, no clubbing, no cyanosis NEURO: no lateralizing findings, Sensory/Motor grossly normal IMPRESSION/RECOMMENDATIONS: 48 year old female with multiple symptoms, mostly upper abd pain, post prandial fullness. Of concern is also her fam hx of her mother passing of pancreatic cancer in her 50's. Pain localized to upper abdomen (Primary) - HELICOBACTER PYLORI ANTIGEN, EIA, STOOL; Future; Expected date: 01/12/2024 - US ABDOMEN LIMITED - EGD, FLEXIBLE, DIAGNOSTIC - US ENDOSCOPIC; Future; Expected date: 04/12/2024 - TISSUE TRANSGLUTAMINASE IGA ANTIBODY; Future; Expected date: 01/11/2024 - IGA; Future; Expected date: 01/11/2024 Family history of pancreatic cancer Loose stools - PANCREATIC ELASTASE-1; Future; Expected date: 01/12/2024 - TISSUE TRANSGLUTAMINASE IGA ANTIBODY; Future; Expected date: 01/11/2024 - IGA; Future; Expected date: 01/11/2024 FOD MAP diet handout given. Consider discontinuing all supplements. Given option of Hair for breath testing for SIBO, prefers buying/completing OTC Triosmart breath test. Recheck in GI after above testing. I spent a total of 40 minutes on the date of service in review of patient's record, and previously obtained information in person and appropriate medical visit, discussion and education of plan, withpatient and/or caregiver, placing orders for tests/referral/procedures as medically necessary and documentation of pertinent clinical information in patient's medical records for their visit today. JIM Madera [facility] [address] Gastroenterology documented in this encounter Nursing Notes * Danna Romero CMA - 01/11/2024 1:01 PM EST Chief Complaint Patient presents with NEW PATIENT New pt ref by Dr Bone for abdominal pain. Pt c/o heartburn and bloating along with the abd pain. BM's are normal. documented in this encounter Plan of Treatment Upcoming Encounters Date Type Department Care Team (Late st Contact Info) Description 04/29/2024 3:00 PM EST Office Visit Cardiology, [facility] [address] [place] [address] Iman Marroquin PA-C [address] [place] [address] [place] [place] [address] 06/22/2024 2:00 PM EDT Office Visit Gynecology/Obstetrics [facility] [address] [place] [address] Ana Duarte CRNP [address] [place] [address] 07/04/2024 2:00 PM EDT Office Visit Gastroenterology, [facility] [address] [place] [address] Capo Irizarry CRNP [address] [place] [address] Scheduled Orders Name Type Priority Associated Diagnoses Orde r Schedule EGD, FLEXIBLE, DIAGNOSTIC Procedures Routine Pain localized to upper abdomen Ordered: 01/11/2024 Scheduled Procedures Name Priority Associated Diagnoses Date/Ti [...] shot) (#1) 2023 11/26/2021 Mammogram 06/21/2024 06/22/2023, 08/2022, 11/04/2022, Additional history exists Depression Screening [...] Procedure Name Priority Date/Time Associated Diagnosis Comments US ABDOMEN LIMITED Routine 01/18/2024 7: 42 AM EST Pain localized to upper abdomen documented in this encounter Results * US ENDOSCOPIC (01/28/2024 10:32 AM EST) Narrative Scheduling, Silent - 01/28/2024 10:32 AM EST This is an imaging study not interpreted or resulted by a [facility] or [facility] contracted radiologist. us Capo FERNANDEZ RAD ULTRASOUND Final Resu lt * HELICOBACTER PYLORI ANTIGEN, EIA, STOOL (01/18/2024 4:21 PM EST) H. Pylori Antigen Not Detected Not Detected 01/21/2024 7:52 AM EST [facility] [place] Comment: Antimicrobials, proton pump inhibitors, and bismuth preparations inhibit H. pylori and ingestion up to two weeks prior to testing may cause false negative results. If clinically indicated the test should be repeated on a new specimen obtained two weeks after discontinuing treatment. Test Performed at: [facility] [employer] [facility] [address] [place] [address] Sang Dunn M.D., Ph.D.,Director of Laboratories Stool Stool specimen / Unknown Non-blood Collection / Unknown 01/18/2024 4:21 PM EST 01/18/2024 4:20 PM EST Capo FERNANDEZ LAB FLUID AND STOOL ORDERA BLES Final Result [facility] [place] [address] [place] [address] * PANCREATIC ELASTASE-1 (01/18/2024 4:19 PM EST) Pancreatic Elastase-1 646 >200 mcg/g 01/27/2024 11:30 PM EST [facility] [place] Comment: E-1 mcg/g feces Interpretation <100 Severe exocrine pancreatic insufficiency 100-200 Mild to moderate exocrine pancreatic insufficiency >200 Normal Test performed by [facility] [place] [address] [place] [address] Dice Spotter: Ernestina Drummond MD,PHD,DANELLE Test Reported by [facility], [facility] [employer] [facility], [address] [place], [place] Sang Dunn M.D., Ph.D., Director of Laboratories , [facility] [id number] Stool Stool specimen / Unknown Non-blood Collection / Unknown 01/18/2024 4:19 PM EST 01/18/2024 4:19 PM EST Capo FERNANDEZ LAB FLUID AND STOOL ORDERA BLES Final Result [facility] [address] [place] [address] * IGA (01/18/2024 7:51 AM EST) IgA 118 70 - 400 mg/dL 01/18/2024 2:42 PM EST [facility] Blood Venous blood specimen / Unknown Venipuncture / Unknown 01/18/2024 7:51 AM EST 01/18/2024 7:51 AM EST [facility]o FERNANDEZ [facility] BLOOD ORDERABLES Final Result [facility] [address] [place] [address] * TISSUE TRANSGLUTAMINASE IGA ANTIBODY (01/18/2024 7:51 AM EST) Tissue Transglutaminase IgA Antibody Interpretation Negative Negative 01/19/2024 11:16 AM EST [facility] Tissue Transglutaminase IgA Antibody Value <0.2 <7 U/mL 01/19/2024 11:16 AM EST [facility] Blood Venous blood specimen / Unknown Venipuncture / Unknown 01/18/2024 7:51 AM EST 01/18/2024 7:51 AM EST us Capo FERNANDEZ [facility] BLOOD ORDERABLES Final Result [facility] [address] [place] [address] * US ABDOMEN LIMITED (01/18/2024 7:42 AM EST) Anatomical Region Laterality Modality Abdomen, Body Ultrasound 01/19/2024 8:01 AM EST Impressions 01/19/2024 7:59 AM EST IMPRESSION Small gallbladder polyps. Narrative 01/19/2024 7:59 AM EST EXAM US ABDOMEN LIMITED-01/18/2024 7:42 am HISTORY upper abdomen fullness/bloating; episodes of significant pain TECHNIQUE Sonogram of the right upper quadrant. COMPARISON None. FINDINGS LIVER: Normal echogenicity. No focal lesion. BILE DUCTS: No intrahepatic or extrahepatic duct dilatation. The common bile duct measures 5 mm. There are a couple of gallbladder polyps measuring up to 3 mm. GALLBLADDER: No cholelithiasis, gallbladder wall thickening, or pericholecystic fluid. PANCREAS: Visualized portions are unremarkable. RIGHT KIDNEY: 11.3 cm in length. No hydronephrosis, shadowing calculi, or focal lesion. OTHER: No ascites. Procedure Note Sung Bone MD - 01/19/2024 EXAM US ABDOMEN LIMITED-01/18/2024 7:42 am HISTORY upper abdomen fullness/bloating; episodes of significant pain TECHNIQUE Sonogram of the right upper quadrant. COMPARISON None. FINDINGS LIVER: Normal echogenicity. No focal lesion. BILE DUCTS: No intrahepatic or extrahepatic duct dilatation. The commonbile duct measures 5 mm. There are a couple of gallbladder polypsmeasuring up to 3 mm. GALLBLADDER: No cholelithiasis, gallbladder wall thickening, orpericholecystic fluid. PANCREAS: Visualized portions are unremarkable. RIGHT KIDNEY: 11.3 cm in length. No hydronephrosis, shadowing calculi, orfocal lesion. OTHER: No ascites. IMPRESSION IMPRESSION Small gallbladder polyps. us Capo FERNANDEZ RAD ULTRASOUND Final Resu lt documented in this encounter Visit Diagnoses Diagnosis Pain localized to upper abdomen- Primary Abdominal pain, other specified site Family history of pancreatic cancer Family history of malignant neoplasm of gastrointestinal tract Loose stools Abnormal feces Pain localized to upper abdomen Abdominal pain, other specified site documented in this encounter Care Teams Safety Manager Relationship Specialty Start Date End Date Aiyana Bone MD [address] [facility] [place] [address] PCP - General Internal Medicine 05/03/19 documented as of this encounter
--- OUTSIDE RECORDS SUMMARY | 2024-05-29 10:14 | External Medical Summary ---
Author Name Unknown Address Unknown Organization K01:LABORATORY [facility] - [address] [place] [address] Laboratory Report Ordering Provider Test Date Status NIKKO ERICKSON 01/18/2024 07:51:01 Final Observation Date Value Abnormality Reference (Units ) Status HbA1C 01/18/2024 07:51:01 5.3 4.0-5.6 (% ) Final The use of HbA1c to monitor glycemic status is based on normal hemoglobin and HbA composition. This test should not be used in patients with abnormal hemoglobin that affects the half life of the red blood cell or the in vivo glycation rates. Glucose, estimated average 01/18/2024 07:51:01 105 <126 (mg/dL) Final Performing Location LABORATORY [facility] - [address] [place] [address]
--- OUTSIDE RECORDS SUMMARY | 2024-05-29 10:14 | External Medical Summary | Summary of Care ---
Author Name Unknown Organization [facility] Address [address] [place] [address] Phone [phone] Care Team Providers Care Senior Svp Name Role Phone Aiyana Bone MD Primary Care Provider + Reason for Visit * Reason Comments Outpatient Testing Encounter Details Date Type Department Care Team (Late st Contact Info) Description 01/18/2024 8:00 AM EST Laboratory Laboratory, [facility] [address] [place] [address] [facility] [address] [place] [address] Encounter for screening examination for impaired glucose regulation and diabetes mellitus; Lipid screening; Pain localized to upper abdomen; Loose stools Allergies No known active allergiesdocumented as of this encounter (statuses as of 01/18/2024) Medications CALCIUM & MAGNESIUM CARBONATES 311-232 MG [...] as of this encounter (statuses as of 01/18/2024) Active Problems Problem Noted Date Diagnosed Date Family history of premature CAD 11/06/2021 Atrial septal aneurysm 08/13/2021 documented as of this encounter (statuses as of 01/18/2024) Resolved Problems Problem Noted Date Diagnosed Date Resolved Date Vaginal itching 03/24/2019 08/13/2021 Overview (03/24/2019): X 5 years, left labial itching. Antepartum abnormal glucose tolerance of mother 02/28/2014 03/24/2019 Overview (02/28/2014): 1 hour Glucola 135 mg/ dl Declines 3 hour OGTT Advanced maternal age, primi , antepartum 02/01/2014 03/24/2019 Overview (02/01/2014): NOB at 35.6 weeks, transfer from [facility] due to breech presentation No pap smear [...] as of this encounter (statuses as of 01/18/2024) Immunizations Name Administration Dates Next Due COVID-19 [...] on file documented as of this encounter Plan of Treatment Upcoming Encounters Date Type Department Care Team (Latest Contact Info) Description 01/28/2024 10:00 AM EST Hospital Encounter ENDO [facility], Endoscopy Room [facility] [address] [place] [place] [address] Juana Parker MD [address] [place] [address] 01/28/2024 10:00 AM EST - 01/28/2024 10:45 AM EST Surgery ENDO [facility], Endoscopy Room [facility] [address] [place] [address] Juana Parker MD [address] [place] [address] ESOPHAGOGASTRODUODENOSCOPY (EGD), FLEXIBLE, TRANSORAL, ENDOSCOPIC ULTRASOUND 04/29/2024 3:00 PM EST Office Visit Cardiology, [facility] [address] [place] [address] Iman Marroquin PA-C [address] [place] [address] [place] [address] 06/22/2024 2:00 PM EDT Office Visit Gynecology/Obste trics [facility] [address] [place] [address] Ana Duarte CRNP [address] [place] [address] 07/04/2024 2:00 PM EDT Office Visit Gastroenterology , [facility] [address] [place] [place] [address] Capo Irizarry CRNP [address] [place] [address] Pending Results Name Type Priority Associated Diagnoses Date /Time HEMOGLOBIN A1C Lab Routine Encounter for screening examination for impaired glucose regulation and diabetes mellitus 01/18/2024 7:51 AM EST LIPID PANEL WITH DIRECT LDL IF TG IS HIGH Lab Routine Lipid screening 01/18/2024 7:51 AM EST TISSUE TRANSGLUTAMINASE IGA ANTIBODY Lab Routine Pain localized to upper abdomen Loose stools 01/18/2024 7:51 AM EST IGA Lab Routine Pain localized to upper abdomen Loose stools 01/18/2024 7:51 AM EST Scheduled Procedures Name Priority Associated Diagnoses Date/Ti me ESOPHAGOGASTRODUODENOSCOPY ( EGD), FLEXIBLE, TRANSORAL, ENDOSCOPIC ULTRASOUND Pain localized to upper abdomen 01/28/2024 10:00 AM EST COLONOSCOPY FLEXIBLE PROXIMA L DIAGNOSTIC [...] as of this encounter Visit Diagnoses Diagnosis Encounter for screening examination for impaired glucose regulation and diabetes mellitus Lipid screening Screening for lipoid disorders Pain localized to upper abdomen Abdominal pain, other specified site Loose stools Abnormal feces Pain localized to upper abdomen Abdominal pain, other specified site documented in this encounter Care Teams Senior Svp Relationship Specialty Start Date End Date Aiyana Bone MD [address] [place] [id number] PCP - General Internal Medicine 05/03/19 documented as of this encounter
--- OUTSIDE RECORDS SUMMARY | 2024-05-29 10:14 | External Medical Summary | Summary of Care ---
Author Name Unknown Organization [facility] Address [address] [place] [address] Phone [phone] Care Team Providers Care Manufacturing Engineer Assembly Name Role Phone Aiyana Bone MD Primary Care Provider + Encounter Details Date Type Department Care Team (Late st Contact Info) Description 01/05/2024 Orders Only PATIENT PORTAL DO NOT DELETE THIS DEPT [id number] Allergies No known active allergiesdocumented as of this encounter (statuses as of 01/05/2024) Medications Medication Sig Dispensed Refills Start Date [...] Active Fluticasone Propionate 50 MCG/ACT Nasal Suspension (Flonase)Indications: Acute sinusitis, recurrence not specified, unspecified location Administer 2 Sprays into each nostril in the morning. 9.9 mL 04/23/2023 Active Triamcinolone Acetonide 0.1 % External Ointment (Aristocort)Indicatio ns:Perineal itching, female Apply topically to affected area 2 times a day. Apply to perineum 30 g 06/16/2023 Active documented as of this encounter (statuses as of 01/05/2024) Active Problems Problem Noted Date Diagnosed Date Family history of premature CAD 11/06/2021 Atrial septal aneurysm 08/13/2021 documented as of this encounter (statuses as of 01/05/2024) Resolved Problems Problem Noted Date Diagnosed Date Resolved Date Vaginal itching 03/24/2019 08/13/2021 Overview: X 5 years, left labial itching. Antepartum abnormal glucose tolerance of mother 02/28/2014 03/24/2019 Overview: 1 hour Glucola 135 mg/ dl Declines 3 hour OGTT Advanced maternal age, primi , antepartum 02/01/2014 03/24/2019 Overview: NOB at 35.6 weeks, transfer from [facility] due to breech presentation No pap [...] as of this encounter (statuses as of 01/05/2024) Immunizations Name Administration Dates Next Due COVID-19 mRNA, LNP-s, No Pre serve, 2-Dose Series ([employer]) 02/21/2021,07/28/2020,07/07/2020 Seasonal Influenza, PF, 6 M & [...] 01/11/2024 1:00 PM EST Office Visit Gastroenterology, [facility] [address] [place] [address] Capo Irizarry CRNP [address] [place] [address] 04/29/2024 3:00 PM EST Office Visit Cardiology, [facility] [address] [place] [address] Iman Díaz PA-C [address] [place] [address] 06/22/2024 2:00 PM EDT Office Visit Gynecology/Obstetrics Sho Menendez [address] [place] [address] Backer, Ana JIM Lopez [address] [place] [address] Scheduled Procedures Name Priority Associated Diagnoses Date/Ti [...] filedocumented as of this encounter Care Teams Manufacturing Engineer Assembly Relationship Specialty Start Date End Date Aiyana Bone MD [address] [facility] [place] [address] PCP - General Internal Medicine 05/03/19 documented as of this encounter
--- OUTSIDE RECORDS SUMMARY | 2024-05-29 10:14 | External Medical Summary | Summary of Care ---
Author Name Unknown Organization [facility] Address [address] [place] [address] Phone [phone] Care Team Providers Care Prison Teacher Name Role Phone Aiyana Bone MD Primary [...] pain, generalized Aiyana Bone MD [address] [place] [address] Referral ID Status Reason Start Date Expiration Date Visits Requested Visits Authorized [id number] Authorized Specialty Services Required 4 [phone] Encounter Details Date Type Department Care Team (Late st Contact Info) Description 01/11/2024 1:00 PM EST Office Visit Gastroenterology, [facility] [address] [place] [address] Capo Irizarry CRNP [address] [place] [address] Pain localized to upper abdomen*; Family history of pancreatic cancer; Loose stools Allergies No known active allergiesdocumented as of this encounter (statuses as of 01/11/2024) Medications Medication Sig Dispensed Refills Start Date [...] as of this encounter (statuses as of 01/11/2024) Active Problems Problem Noted Date Diagnosed Date Family history of premature CAD 11/06/2021 Atrial septal aneurysm 08/13/2021 documented as of this encounter (statuses as of 01/11/2024) Resolved Problems Problem Noted Date Diagnosed Date Resolved Date Vaginal itching 03/24/2019 08/13/2021 Overview: X 5 years, left labial itching. Antepartum abnormal glucose tolerance of mother 02/28/2014 03/24/2019 Overview: 1 hour Glucola 135 mg/ dl Declines 3 hour OGTT Advanced maternal age, primi , antepartum 02/01/2014 03/24/2019 Overview: NOB at 35.6 weeks, transfer from Receiving Operator due to breech presentation No pap smear [...] as of this encounter (statuses as of 01/11/2024) Immunizations Name Administration Dates Next Due COVID-19 mRNA, LNP-s, No Pre serve, 2-Dose Series ([employer]) 02/21/2021,07/28/2020,07/07/2020 Seasonal Influenza, PF, 6 M & [...] Progress Notes * Capo Irizarry CRNP - 01/11/2024 1:12 PM EST Consult requested by REF: AIYANA BONE[address] [place] [address] (office) [phone] (fax) CC: Abdominal Pain HPI: 48 year [...] energy lately. Sees [facility], taking supplements. Alice much better when was on antibiotics. Alice better when on clear liquids for the colonoscopy prep. No fam hx of gallbladder dx + mom young (50's) of pancreatic cancer. 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 She grew up in [facility] and moved to [place] to go to grad school at [employer] ([employer]/[facility]), and stayed in the area. Diagnostic Testing: [...] performed by Alex Carlson MD at ENDOSCOPY [facility] DENTAL SURGERY PROCEDURE NEC wisdom teeth Social [...] Consider discontinuing all supplements. Given option of [facility] for breath testing for SIBO, prefers buying/completing [...] records for their visit today. JIM [facility] Gastroenterology documented in this encounter Nursing Notes * Danna Romero CMA - 01/11/2024 1:01 PM EST Chief Complaint Patient presents with NEW PATIENT New pt ref by Dr Bone for abdominal pain. Pt c/o heartburn and bloating along with the abd pain. BM's are normal. documented in this encounter Plan of Treatment Upcoming Encounters Date Type Department Care Team (Latest Contact Info) Description 01/18/2024 7:15 AM EST Imaging Radiology [facility] [address] [place] [address] 01/28/2024 10:00 AM EST Hospital Encounter ENDO [facility], Endoscopy Room [facility] [address] [place] [phone] Juana Parker MD [address] [place] [address] 01/28/2024 10:00 AM EST - 01/28/2024 10:45 AM EST Surgery ENDO [facility], Endoscopy Room [facility] [address] [place] [phone] Juana Parker MD [address] [place] [address] ESOPHAGOGASTRODUODENOSCOPY (EGD), FLEXIBLE, TRANSORAL, ENDOSCOPIC ULTRASOUND 04/29/2024 3:00 PM EST Office Visit [facility], [facility] [place] [address] Iman Marroquin PA-C [address] [place] [address] [place] [address] 06/22/2024 2:00 PM EDT Office Visit Gynecology/Obste trics [facility] [address] [place] [address] Ana Duarte CRNP [address] [place] [address] 07/04/2024 2:00 PM EDT Office Visit Gastroenterology , [facility] [address] [place] [address] Capo Irizarry CRNP [address] [place] [address] Scheduled Orders Name Type Priority Associated Diagnoses Order Schedule HELICOBACTER PYLORI ANTIGEN, EIA, STOOL Lab Routine Pain localized to upper abdomen Expected: 01/12/2024, Expires: 01/10/2025 US ABDOMEN LIMITED Medical Imaging Routine Pain localized to upper abdomen Ordered: 01/11/2024 PANCREATIC ELASTASE-1 Lab Routine Loose stools Expected: 01/12/2024, Expires: 01/10/2025 EGD, FLEXIBLE, DIAGNOSTIC Procedures Routine Pain localized to upper abdomen Ordered: 01/11/2024 US ENDOSCOPIC Medical Imaging Routine Pain localized to upper abdomen Expected: 04/12/2024, Expires: 02/09/2025 TISSUE TRANSGLUTAMINASE IGA ANTIBODY Lab Routine Pain localized to upper abdomen Loose stools Expected: 01/11/2024, Expires: 01/10/2025 IGA Lab Routine Pain localized to upper abdomen Loose stools Expected: 01/11/2024, Expires: 01/10/2025 Scheduled Procedures Name Priority Associated Diagnoses Date/Ti [...] as of this encounter Visit Diagnoses Diagnosis Pain localized to upper abdomen- Primary Abdominal pain, other specified site Family history of pancreatic cancer Family history of malignant neoplasm of gastrointestinal tract Loose stools Abnormal feces Pain localized to upper abdomen Abdominal pain, other specified site documented in this encounter Care Teams Prison Teacher Relationship Specialty Start Date End Date Aiyana Bone MD [address] [place] [address] PCP - General Internal Medicine 05/03/19 documented as of this encounter
--- OUTSIDE RECORDS SUMMARY | 2024-05-29 10:14 | External Medical Summary ---
Author Name Unknown Address Unknown Organization K01:LABORATORY [facility] - [address] [place] [address] Laboratory Report Ordering Provider Test Date Status SUKHJINDER SOTO 01/18/2024 07:51:01 Final Observation Date Value Abnormality Reference (Units ) Status IgA 01/18/2024 07:51:01 118 70-400 (mg /dL) Final Performing Location LABORATORY [facility] - [address] [place] [address]
--- OUTSIDE RECORDS SUMMARY | 2024-05-29 10:14 | External Medical Summary | Summary of Care ---
Author Name Unknown Organization [facility] Address [address] [place] [address] Phone [phone] Care Team Providers Care Campus Rep Name Role Phone Aiyana Bone MD Primary Care Provider + Reason for Visit * Reason Comments Outpatient Testing Encounter Details Date Type Department Care Team (Late st Contact Info) Description 01/18/2024 4:10 PM EST Laboratory Laboratory [facility] [address] [place] [phone] [facility] [address] [facility] [place] [address] Loose stools; Pain localized to upper abdomen Allergies No known active allergiesdocumented as of [...] (02/01/2014): NOB at 35.6 weeks, transfer from Mortician Investigator due to breech presentation No pap smear [...] EST Hospital Encounter ENDO [facility], Endoscopy Room [facility] [address] [place] [address] Juana Parker MD [address] [place] [address] 01/28/2024 10:00 AM EST - 01/28/2024 10:45 AM EST Surgery ENDO [facility], Endoscopy Room [facility] [address] [place] [address] Juana Parker MD [address] [place] [address] ESOPHAGOGASTRODUODENOSCOPY (EGD), FLEXIBLE, TRANSORAL, ENDOSCOPIC ULTRASOUND 04/29/2024 3:00 PM EST Office Visit Cardiology, [facility] [address] [place] [address] Iman Marroquin PA-C [address] [place] [address] [place] [address] 06/22/2024 2:00 PM EDT Office Visit Gynecology/Obste trics [facility] [address] [place] [address] Ana Duarte CRNP [address] [place] [address] 07/04/2024 2:00 PM EDT Office Visit Gastroenterology , [facility] [address] [place] [address] Capo Irizarry CRNP [address] [place] [address] Pending Results Name Type Priority Associated Diagnoses Date /Time PANCREATIC ELASTASE-1 Lab Routine Loose stools 01/18/2024 4:19 PM EST HELICOBACTER PYLORI ANTIGEN, EIA, STOOL Lab Routine Pain localized to upper abdomen 01/18/2024 4:21 PM EST Scheduled Procedures Name Priority Associated Diagnoses [...] as of this encounter Visit Diagnoses Diagnosis Loose stools Abnormal feces Pain localized to upper abdomen Abdominal pain, other specified site Pain localized to upper abdomen Abdominal pain, other specified site documented in this encounter Care Teams Campus Rep Relationship Specialty Start Date End Date Aiyana Bone MD [address] [facility] [place] [address] PCP - General Internal Medicine 05/03/19 documented as of this encounter
--- OUTSIDE RECORDS SUMMARY | 2024-05-29 10:14 | External Medical Summary ---
Author Name Unknown Address Unknown Organization K01:LABORATORY [place] [address] [address] [facility] [address] Laboratory Report Ordering Provider Test Date Status SUKHJINDER SOTO 01/18/2024 07:51:01 Final Observation Date Value Abnormality Reference (Units ) Status Tissue transglutaminase IgA Ab [Presence] in Serum by Immunoassay 01/18/2024 07:51:01 Negative Negative Final Tissue transglutaminase IgA Ab [Units/volume] in Serum by Immunoassay 01/18/2024 07:51:01 <0.2 <7 (U/mL) Final Performing Location LABORATORY [facility] - [facility] [place] [address] [address]
--- NOTE | 2024-05-29 10:36 | Emergency Department Note ---
Impression & Plan Diverticulitis of sigmoid colon, Leukocytosis, Sinus tachycardia, Fever ED Provider Note HISTORY OF PRESENT ILLNESS: Patient is a 48-year-old female presenting with abdominal pain. Patient reports that yesterday she started getting a stabbing pain throughout her abdomen. Reports initially seem to be on the left lower quadrant but has since become her bilateral lower quadrants. States that when she passes gas she has excruciating pain in her rectum. She had a fever of 100.4 yesterday. Denies taking any antipyretics today. She denies any history of abdominal surgeries other than a section. She reports nausea but denies any vomiting. She did have an episode of loose stool yesterday. Denies any chest pain or shortness of breath. She reports that it feels like her heart is racing. ROS: as above PHYSICAL EXAM: Constitutional: Patient appears in no acute distress. HENT: Head: Normocephalic and atraumatic. Eyes: EOMI, PERRL Mouth/Throat: Mucous membranes moist. Neck: Trachea midline. Neck supple. Cardiovascular: Tachycardic with regular rhythm. No murmurs, rubs or gallops. Intact distal pulses. Pulmonary/Chest: No respiratory distress. Breath sounds clear and equal bilaterally. No wheezes or rales. Abdominal: Abdomen soft, no rebound or guarding. Diffuse tenderness to palpation. Musculoskeletal: No edema, tenderness or deformity noted. Skin: Warm and dry. No rash, erythema, pallor or cyanosis Psychiatric: Appropriate mood and affect for situation. Neurological: Alert and keenly responsive. CN II-XII grossly intact, moving all extremities equally and fully. MDM: - Vitals signs showed fever and tachycardia. - History obtained via patient. History as above. - Chronic conditions affecting care: None - Differential diagnoses include, but are not limited to: Aortic aneurysm; diverticulitis; ectopic ; ovarian cyst; ureteral calculi; UTI - Order placed for continuous cardiac monitoring. At this time, monitor showed rate of 120 bpm with normal sinus rhythm, per my interpretation. - External medical records reviewed. - Laboratory workup interpreted by myself showed leukocytosis (WBC 15.08) with neutrophil predominance; slight hyponatremia (Na 135); slight hypokalemia (K 3.4); normal lipase; negative hCG - UA negative for infection - Patient given 2L NS and 1g IV tylenol. On reassessment, she is complaining of continued pain. Given 50 mcg of IV fentanyl. - CT abdomen/pelvis with IV contrast showed findings consistent with acute sigmoid diverticulitis. - IV zosyn ordered - Given patient's leukocytosis, fever and tachycardia and diverticulitis, she meets sepsis criteria. Blood cultures, lactate and procalcitonin were ordered. However, these were obtained after administration of IV Zosyn. - Patient's sepsis fluid volume calculation based on ideal body weight is 1772.70 mL - Discussion was had with case liner about patient's case and need for admission - Hospitalist, Dr. Leon, consulted for admission - [facility] and management. ASSESSMENT AND PLAN: Diagnosis: Acute sigmoid diverticulitis; leukocytosis; sinus tachycardia; fever Plan: Admit Past Med/Surg History Problem List (Updated 05/29/24 @ 14:08 by Nehal Zuniga MD) Fever (Acute) Sinus tachycardia (Acute) Leukocytosis (Acute) Diverticulitis of sigmoid colon (Acute) Breech presentation (Acute 02/28/14) Social History Smoking Status: Never smoker Feels Safe at Home: Yes Allergies Allergies Allergy/AdvReac Type Severity Reaction Status Date / Time No Known Allergies Allergy Unverified 05/29/24 11:53 Home Meds Home Medications Medication Instructions Recorded Confirmed salmon oil 1,000 mg-omega-3 fatty 1 cap PO DAILY ##0 02/28/14 05/29/24 acids 210 mg capsule 5-HTP 18.8 mg-tyrosine 187.5 1 cap PO DAILY 05/29/24 05/29/24 [id number]-chrom capsule ascorbic acid (vitamin C) 250 mg 250 mg PO DAILY 05/29/24 05/29/24 tablet (Vitamin C) calcium glucarate 500 mg capsule 1 tab-cap PO DAILY 05/29/24 05/29/24 cholecalciferol (vitamin D3) 25 25 mcg PO DAILY 05/29/24 05/29/24 mcg (1,000 unit) tablet (Vitamin D3) magnesium 200 mg tablet 200 mg PO DAILY 05/29/24 05/29/24 multivitamin 1 tab PO DAILY 05/29/24 05/29/24 Results & Data (ED) Vital Signs Vital Signs - 24 hr 05/29/24 10:13 05/29/24 10:31 05/29/24 11:05 Temperature 36.3 C L 37.9 C H Temperature Source Skin Oral Pulse Rate 138 H 123 H Pulse Rate [Apical] 119 H Pulse Rate from SpO2 Sensor Pulse Rhythm [Apical] Pulse Strength [Apical] Respiratory Rate 20 16 Respiratory Effort / Characteristics Non-Labored Spontaneous Non-Labored Spontaneous Respiratory Depth Normal Normal Respiratory Pattern Regular Blood Pressure 109/66 Blood Pressure [Right Arm] 109/70 Blood Pressure Mean 80 Blood Pressure Mean [Right Arm] 83 Pulse Oximetry 97 98 Oxygen Delivery Method Room Air Sepsis Recent Fever Within 48 Hours No Sepsis New/Unexplained Change in Mental Status N/A Sepsis Action Taken by Nursing No Action Required 05/29/24 11:25 05/29/24 12:00 05/29/24 12:03 Temperature Temperature Source Pulse Rate 101 H Pulse Rate [Apical] 104 H Pulse Rate from SpO2 Sensor 102 H Pulse Rhythm [Apical] Regular Pulse Strength [Apical] Normal Respiratory Rate 20 17 Respiratory Effort / Characteristics Non-Labored Spontaneous Respiratory Depth Normal Respiratory Pattern Regular Blood Pressure 104/57 L Blood Pressure [Right Arm] 98/60 L Blood Pressure Mean 67 Blood Pressure Mean [Right Arm] 72 Pulse Oximetry 95 95 Oxygen Delivery Method Room Air Room Air Sepsis Recent Fever Within 48 Hours Sepsis New/Unexplained Change in Mental Status Sepsis Action Taken by Nursing 05/29/24 12:30 05/29/24 12:36 Temperature Temperature Source Pulse Rate 98 H Pulse Rate [Apical] Pulse Rate from SpO2 Sensor 98 H Pulse Rhythm [Apical] Pulse Strength [Apical] Respiratory Rate 17 Respiratory Effort / Characteristics Respiratory Depth Respiratory Pattern Blood Pressure 97/58 L Blood Pressure [Right Arm] Blood Pressure Mean 64 Blood Pressure Mean [Right Arm] Pulse Oximetry 96 Oxygen Delivery Method Room Air Sepsis Recent Fever Within 48 Hours Sepsis New/Unexplained Change in Mental Status Sepsis Action Taken by Nursing Laboratory Data 05/29/24 10:29 05/29/24 10:29 Lab Results 05/29/24 05/29/24 05/29/24 Range/Units 10:29 12:45 13:23 WBC 15.08 H (4.8-10.8) K/ul RBC 4.81 (4.20-5.40) M/uL Hgb 14.8 (12.0-16.0) g/dl Hct 42.0 (37.0-47.0) % MCV 87.3 (80.0-100.0) fL MCH 30.8 (25.0-34.0) pg MCHC 35.2 (32.0-36.0) g/dL RDW Std Deviation 38.7 (36.4-46.3) fL RDW Coeff of Ian 12.0 (11.5-14.5) % Plt Count 182 (130-400) K/uL MPV 9.5 (9.4-12.4) fL Immature Gran % (Auto) 0.3 % Neut % (Auto) 85.2 % Lymph % (Auto) 6.1 % [place] % (Auto) 8.0 % Eos % (Auto) 0.1 % Baso % (Auto) 0.3 % Neut # (Auto) 12.84 H (1.40-6.50) K/uL Lymph # (Auto) 0.92 L (1.20-3.40) K/uL [place] # (Auto) 1.21 H (0.11-0.59) K/uL Eos # (Auto) 0.02 (0.00-0.50) K/uL Baso # (Auto) 0.04 (0.00-0.20) K/uL Immature Gran # (Auto) 0.05 (0.01-0.20) K/uL Sodium 135 L (136-145) mmol/L Potassium 3.4 L (3.5-5.1) mmol/L Chloride 104 (98-107) mmol/L Carbon Dioxide 26 (21-32) mmol/L Anion Gap 5 (3-11) BUN 8 (6-23) mg/dl Creatinine 0.71 (0.6-1.2) mg/dl Est Cr Clr Drug Dosing 90.7 ml/min eGFR 104.82 BUN/Creatinine Ratio 11.3 (10-20) Glucose 137 H (70-99(Fasting)) mg/dl Lactate 0.5 (0.4-2.0) mmol/L Calcium 8.9 (8.6-10.3) mg/dl Total Bilirubin 1.1 H (0.2-1.0) mg/dl AST 14 (13-39) U/L ALT 11 (7-52) U/L Alkaline Phosphatase 38 (34-104) U/L Total Protein 6.7 (6.0-8.3) gm/dl Albumin 4.3 (3.4-5.0) gm/dl Globulin 2.4 L (2.5-4.0) gm/dl Albumin/Globulin Ratio 1.8 (0.9-2) Lipase 35 (11-82) U/L Procalcitonin 0.07 (0-0.5) ng/ml HCG, Qual Negative (Negative) Urine Color Yellow Urine Appearance Clear (Clear) Urine pH 6.0 (4.5-7.5) Ur Specific [place] 1.035 H (1.000-1.030) Urine Protein Negative (Negative) Urine Glucose (UA) Negative (Negative) Urine Ketones Trace H (Negative) Urine Blood Trace H (Negative) Urine Nitrite Negative (Negative) Urine Bilirubin Negative (Negative) Urine Urobilinogen Negative (Negative) Ur Leukocyte Esterase Negative (Negative) Urine WBC (Auto) 0-5 (0-5) /hpf Urine RBC (Auto) 0-2 (0-2) /hpf U Hyaline Cast (Auto) 0-2 (0-2) /lpf U Epithel Cells (Auto) 0-2 (0-2) /hpf Urine Bacteria (Auto) None Seen (None Seen) Administered Medications Discontinued Medications Fentanyl Citrate (Fentanyl Citrate Pf 100 Mcg/2 Ml Vial) 50 mcg IV NOW STA Stop: 05/29/24 12:53 Last Admin: 05/29/24 13:14 Dose: 50 mcg Documented By: ANTON Sodium Chloride (Nss) 1,000 mls @ 999 mls/hr IV .Q1H1M STA Stop: 05/29/24 11:32 Last Infusion: 05/29/24 13:06 Dose: Infused Documented By: Admin: 05/29/24 10:39 Dose: 999 mls/hr Documented By: GENTRY Acetaminophen (Ofirmev) 1,000 mg in 100 mls @ 400 mls/hr IV NOW STA Stop: 05/29/24 10:46 Last Infusion: 05/29/24 11:30 Dose: Infused Documented By: Admin: 05/29/24 10:40 Dose: 400 mls/hr Documented By: GENTRY Sodium Chloride (Nss) 1,000 mls @ 999 mls/hr IV .Q1H1M ONE Stop: 05/29/24 13:01 Last Admin: 05/29/24 12:46 Dose: 999 mls/hr Documented By: ANTON Piperacillin Sod/Tazobactam Sod (Zosyn) 4.5 gm in 100 mls @ 200 mls/hr IV NOW ONE; Protocol Stop: 05/29/24 12:30 Last Admin: 05/29/24 12:46 Dose: 200 mls/hr Documented By: ANTON Ioversol (Optiray 320 100ml) 94 ml IV ONCE ONE Stop: 05/29/24 11:31 Last Admin: 05/29/24 11:30 Dose: 94 ml Documented By: MELANIE Ondansetron HCl (Ondansetron Inj 2 Mg/Ml 2 Ml Vial) 4 mg IV NOW STA Stop: 05/29/24 10:33 Last Admin: 05/29/24 10:39 Dose: 4 mg Documented By: GENTRY Imaging Data Radiologist's Impression: Abdomen/Pelvis CT 05/29/24 10:32 CT OF THE ABDOMEN AND PELVIS WITH CONTRAST CLINICAL HISTORY: Lower abdominal pain and diarrhea. Fevers. COMPARISON STUDY: None. TECHNIQUE: Following IV administration of 94 mL of Optiray, axial images of the abdomen and pelvis were obtained from the lung bases to the proximal femurs. Images were reviewed in the axial, sagittal, and coronal planes. IV contrast was administered without complication. Automated exposure control was utilized for the study. A dose lowering technique was utilized adhering to the principles of ALARA. CT DOSE: 780.67 mGy.cm FINDINGS: Visualized portions of the lung bases are unremarkable. No pneumatosis, free air or portal venous gas is present. An 8 mm hypodense medial segment hepatic lesion represents a cyst. No biliary or pancreatic ductal dilatation. Spleen, adrenal glands, kidneys and pancreas are unremarkable. Mild asymmetric wall thickening of the mid to distal left ureter is related to diverticulitis. There are no urinary calculi. There is no evidence for a bowel obstruction. The appendix is normal. Sigmoid diverticulosis is noted. There is circumferential wall thickening of the mid to distal sigmoid colon with moderate to extensive pericolonic inflammation which extends into the sigmoid mesentery and a small amount of fluid. No fluid collection is present. There is no extraluminal gas. Major vasculature is patent. There is no lymphadenopathy. IMPRESSION: Findings consistent with acute sigmoid diverticulitis. Sigmoid colon wall thickening with pericolonic fluid and moderate to extensive inflammation. No free air or abscess. ACT 112: Negative or not required by law. Electronically signed by: Lamont Ch M.D. 05/29/2024 11:51 AM Discharge Plan Visit Data Chief Complaint: Abdominal Pain Stated Complaint: ABDOMINAL PAIN, FEVER ED Provider: Nehal Zuniga Discharge Problem: Diverticulitis of sigmoid colon, Leukocytosis, Sinus tachycardia, Fever Forms Stand Alone Forms: My [facility] Prescriptions Prescriptions: No Action salmon oil-omega-3 fatty acids 1,000-210 mg Capsule 1 cap PO DAILY Qty: 0 multivitamin Tablet 1 tab PO DAILY ascorbic acid (vitamin C) [Vitamin C] 250 mg Tablet 250 mg PO DAILY magnesium 200 mg Tablet 200 mg PO DAILY calcium glucarate [Calcium D-Glucarate] 500 mg Capsule 1 tab-cap PO DAILY cholecalciferol (vitamin D3) [Vitamin D3] 25 mcg (1,000 unit) Tablet 25 mcg PO DAILY [id number]-[id number] 18.8-187.5-93.8 mg Capsule 1 cap PO DAILY Referrals Referrals: PCP,NO [Physician] -
[2024-05-29] MEDS: ONDANSETRON INJ 2 MG/ML 2 ML VIAL IV STA (10:39)
[2024-05-29] MEDS: SODIUM CHLORIDE 0.9% 1,000 ML IV STA (10:39)
[2024-05-29] MEDS: ACETAMINOPHEN 1,000 MG/100 ML VIAL IV STA (10:40)
[2024-05-29 10:45] LABS: Basophils # (auto) 0.04 K/uL (0.00-0.20); Basophils % (auto) 0.3 %; Eosinophils # (auto) 0.02 K/uL (0.00-0.50); Eosinophils % (auto) 0.1 %; Hemoglobin 14.8 g/dl (12.0-16.0); Immature Granulocytes # (auto) 0.05 K/uL (0.01-0.20); Immature Granulocytes % (auto) 0.3 %; Lymphocytes # (auto) 0.92 K/uL (1.20-3.40); Lymphocytes % (auto) 6.1 %; Mean Corpuscular Hemoglobin 30.8 pg (25.0-34.0); Mean Corpuscular Hgb Conc 35.2 g/dL (32.0-36.0); Mean Corpuscular Volume 87.3 fL (80.0-100.0); Mean Platelet Volume 9.5 fL (9.4-12.4); Monocytes # (auto) 1.21 K/uL (0.11-0.59); Neutrophils # (auto) 12.84 K/uL (1.40-6.50); Neutrophils % (auto) 85.2 %; Platelet Count 182 K/uL (130-400); RDW Standard Deviation 38.7 fL (36.4-46.3); Red Blood Count 4.81 M/uL (4.20-5.40); White Blood Count 15.08 K/ul (4.8-10.8)
[2024-05-29 11:03] LABS: Albumin Globulin Ratio 1.8 (0.9-2); Albumin Level 4.3 gm/dl (3.4-5.0); BUN Creatinine Ratio 11.3 (10-20); Bilirubin,Total 1.1 mg/dl (0.2-1.0); Calcium 8.9 mg/dl (8.6-10.3); Creatinine Clr Calc Pharmacy 90.7 ml/min; Globulin 2.4 gm/dl (2.5-4.0); Potassium 3.4 mmol/L (3.5-5.1); Total Protein 6.7 gm/dl (6.0-8.3)
[2024-05-29 11:07] LABS: Pregnancy Test, Serum Negative (Negative)
[2024-05-29] MEDS: OPTIRAY 320 100ml IV ONE (11:30)
--- NOTE | 2024-05-29 11:54 | CT Scan Report ---
CT OF THE ABDOMEN AND PELVIS WITH CONTRAST CLINICAL HISTORY: Lower abdominal pain and diarrhea. Fevers. COMPARISON STUDY: None. TECHNIQUE: Following IV administration of 94 mL of Optiray, axial images of the abdomen and pelvis we re obtained from the lung bases to the proximal femurs. Images were reviewed in the axial, sagittal, and coronal planes. IV contrast was administered without complication. Automated exposure control wa s utilized for the study. A dose lowering technique was utilized adhering to the principles of ALARA . CT DOSE: 780.67 mGy.cm FINDINGS: Visualized portions of the lung bases are unremarkable. No pneumatosis, free air or portal venous gas is present. An 8 mm hypodense medial segment hepatic lesion represents a cyst. No biliary or pancreatic ductal dilatation. Spleen, adrenal glands, kidneys and pancreas are unremarkable. Mild asymmetric wall thickening of the mid to distal left ureter is related to diverticulitis. There are n o urinary calculi. There is no evidence for a bowel obstruction. The appendix is normal. Sigmoid dive rticulosis is noted. There is circumferential wall thickening of the mid to distal sigmoid colon with moderate to extensive pericolonic inflammation which extends into the sigmoid mesentery and a small amount of fluid. No fluid collection is present. There is no extraluminal gas. Major vasculature is p atent. There is no lymphadenopathy. IMPRESSION: Findings consistent with acute sigmoid diverticulitis. Sigmoid colon wall thickening wit h pericolonic fluid and moderate to extensive inflammation. No free air or abscess. ACT 112: Negative or not required by law. Electronically signed by: Lamont Ch M.D. 05/29/2024 11:51 AM
[2024-05-29] MEDS: SODIUM CHLORIDE 0.9% 1,000 ML IV ONE ×2 (12:46→14:30)
[2024-05-29] MEDS: PIPERACILLIN/TAZOBACTAM 4.5 GM/100 ML BAG IV ONE (12:46)
[2024-05-29 13:10] LABS: Appearance Urine Clear (Clear); Bacteria Urine Automated None Seen (None Seen); Bilirubin Urine Negative (Negative); Blood Urine Trace (Negative); Cast Urine Automated 0-2 /lpf (0-2); Color Urine Yellow; Epithelial Cell Urine Auto 0-2 /hpf (0-2); Glucose Urine UA Negative (Negative); Ketones Urine Trace (Negative); Leukocyte Esterase Urine Negative (Negative); Nitrite Urine Negative (Negative); Protein Urine Negative (Negative); RBC Urine Automated 0-2 /hpf (0-2); Specific Gravity Urine 1.035 (1.000-1.030); Urobilinogen Urine Negative (Negative); WBC Urine Automated 0-5 /hpf (0-5)
[2024-05-29] MEDS: fentaNYL citrate PF 100 MCG/2 ML VIAL IV STA (13:14)
--- NOTE | 2024-05-29 13:19 | History & Physical Report ---
Date of Service May 29, 2024 Assessment & Plan (1) Diverticulitis of sigmoid colon: Plan Ms. Newman is a 48 year old woman with past medical history remarkable for intermittent palpitations, atrial septal aneurysm, and family history of premature CAD presented to [facility] ED due to abdominal pain and admitted for acute sigmoid diverticulitis. #Acute sigmoid diverticulitis #Sepsis 2/2 above, tachycardia, hypotension, fever, WBC patient s/p 30mg/kg volume resuscitations, lactate 0.5, hcg negative reviewed egd from 2023 and colonscopy from 2022, known diverticulosis, polyp removed repeat c-scope in 2027 p s/p zosyn in ed CT with extensive inflammation, however, no perforation noted or abscess, no signs of peritonitis follow cultures continue IV zosyn CLD, continue IVF analgesia prn can consider GI if symptoms fail to improve with conservative management #Sinus tachycardia #Intermittent palpitations likely iso above, however, reports of premature CAD in family and just has CT coronary completed but not released yet denies any chest pain or palpitations Monitor on Tele DVT ambulate, scds Admit med/tele Dispo 1-2 days Admission and Anticipated Discharge Date Admission Date: Time spent evaluating patient, direct bedside care, chart review, placing orders, interpretation of diagnostic studies, discussion with consultants, patient, and family members, as well as other required patient management activities is 75 minutes. History of Present Illness Chief Complaint: abdominal pain Primary Care Provider: Aiyana Bone MD Ms. Newman is a 48 year old woman with past medical history remarkable for intermittent palpitations, atrial septal aneurysm, and family history of premature CAD presented to [facility] ED due to abdominal pain. Patient states she was in her normal state of health, when she noted while eating breakfast she experienced sudden onset LLQ pain that progressively worsened with associated nausea and vomiting from the pain. She states that she has never experienced any episode like this previously. She reports that a colonoscopy 2022 revealed diverticulosis. She endorses a high fiber diet and freuqent daily bowel movements without noted constipation. She states her blood pressures are usually in the low 100s-110s and her heart rates on her apple watch are in he 70-80s. She states she has some subjective fever, but her nausea has resolved and she actually feels return of appetite at this time. In the ED, vitals were notable for BP of 90s-100, HR of 90s-140s and O2 sat of high 90s on Ra. TMAX 37.9 Labs with leukocytosis to 15, lactate 0.5 blood cultures ordered Imaging revealed CT with acute sigmoid diverticulitis. ED interventions: zosyn 2 L Patient to be admitted to med/tele for further evaluation and management of acute sigmoid diverticulitis Allergies Allergy/AdvReac Type Severity Reaction Status Date / Time No Known Allergies Allergy Unverified 05/29/24 11:53 Home Medications Medication Instructions Recorded Confirmed Type salmon oil 1,000 mg-omega-3 fatty 1 cap PO DAILY ##0 02/28/14 05/29/24 History acids 210 mg capsule 5-HTP 18.8 mg-tyrosine 187.5 1 cap PO DAILY 05/29/24 05/29/24 History ay-ttkohwtqe-dgqtsodj-B6-C-chrom capsule ascorbic acid (vitamin C) 250 mg 250 mg PO DAILY 05/29/24 05/29/24 History tablet (Vitamin C) calcium glucarate 500 mg capsule 1 tab-cap PO DAILY 05/29/24 05/29/24 History cholecalciferol (vitamin D3) 25 25 mcg PO DAILY 05/29/24 05/29/24 History mcg (1,000 unit) tablet (Vitamin D3) magnesium 200 mg tablet 200 mg PO DAILY 05/29/24 05/29/24 History multivitamin 1 tab PO DAILY 05/29/24 05/29/24 History Past Med/Surg History Problem List (Updated 05/29/24 @ 14:08 by Nehal Zuniga MD) Fever (Acute) Sinus tachycardia (Acute) Leukocytosis (Acute) Diverticulitis of sigmoid colon (Acute) Breech presentation (Acute 02/28/14) Family History (Updated 05/29/24 @ 17:32 by Merced Leon MD) Other Cancer Coronary heart disease Social History Smoking Status: Never smoker Feels Safe at Home: Yes Review of Systems Review of Systems: Constitutional: (+) fever/chills, (-) recent loss of weight, (-) appetite changes, (-) night sweats. Head: (-) headache, (-) dizziness. Eye: (-) blurring of vision, (-) double vision, (-) redness. Ear: (-) hearing loss, (-) discharge, (-) vertigo Nose: (-) discharge, (-) bleeding, (-) congestion, (-) post nasal drip. Throat: (-) sore throat, (-) hoarseness of voice, (-) odynophagia. Cardiovascular: (-) chest pain, (-) palpitations, (-) syncope, (-) orthopnea, (- ) PND, (-) leg swelling. Respiratory: (-) shortness of breath, (-) cough, (-) wheezing, (-) hemoptysis. Neuro: (-) weakness in extremities, (-) numbness, (-) tingling, (-) tremor. Gastrointestinal: (+) belly pain, (-) belly distension, (-) nausea, (-) vomiting, (-) diarrhea, (-) constipation Genitourinary: (-) hematuria, (-) dysuria, (-) polyuria, (-) hesitancy, (-) frequency, (-) urinary incontinence. Musculoskeletal: (-) myalgia, (-) arthralgia. Skin: (-) rashes. Endocrine: (-) heat/cold intolerance. Psychiatry: (-) depression, (-) hallucination. Physical Exam Physical Exam: GENERAL APPEARANCE: AxOx4, generally well-appearing female, mildly anxious HEENT: NC, AT. MMM. EOMI, clear conjunctiva, oropharynx clear. NECK: Supple without lymphadenopathy. No stiffness or restricted ROM. HEART: tachycardic regular rhythm, normal S1/S1, no m/r/g LUNGS: CTAB, moving air well. No crackles or wheezes are heard. ABDOMEN: Soft, tenderness in LUQ/LLQ . BACK: No CVAT, no obvious deformity. EXTREMITIES: Without cyanosis, clubbing or edema. NEUROLOGICAL: Grossly nonfocal. Alert and oriented, moving all 4 extremities. CN not formally tested but appear grossly intact. Skin: Warm and dry without any rash. Results & Data Results & Data Vital Signs (Past 12 Hours) Vital Signs Temp Pulse Pulse Resp BP BP Pulse Ox 05/29/24 12:36 98 H 17 96 05/29/24 12:30 97/58 L 05/29/24 12:03 101 H 17 95 05/29/24 12:00 104/57 L 05/29/24 11:25 104 H 20 98/60 L 95 05/29/24 11:05 123 H 05/29/24 10:31 37.9 C H 119 H 16 109/70 98 05/29/24 10:13 36.3 C L 138 H 20 109/66 97 O2 Del Method 05/29/24 12:36 Room Air 05/29/24 12:30 05/29/24 12:03 Room Air 05/29/24 12:00 05/29/24 11:25 Room Air 05/29/24 11:05 05/29/24 10:31 Room Air 05/29/24 10:13 Laboratory Results Short CBC 05/29/24 Range/Units 10:29 WBC 15.08 H (4.8-10.8) K/ul Hgb 14.8 (12.0-16.0) g/dl Hct 42.0 (37.0-47.0) % Plt Count 182 (130-400) K/uL BMP 05/29/24 10:29 Sodium 135 L Potassium 3.4 L Chloride 104 Carbon Dioxide 26 BUN 8 Creatinine 0.71 Glucose 137 H Calcium 8.9 Liver Function 05/29/24 Range/Units 10:29 Total Bilirubin 1.1 H (0.2-1.0) mg/dl AST 14 (13-39) U/L ALT 11 (7-52) U/L Alkaline Phosphatase 38 (34-104) U/L Albumin 4.3 (3.4-5.0) gm/dl Urine 05/29/24 Range/Units 12:45 Urine Color Yellow Urine Appearance Clear (Clear) Urine pH 6.0 (4.5-7.5) Ur Specific [place] 1.035 H (1.000-1.030) Urine Protein Negative (Negative) Urine Glucose (UA) Negative (Negative) Diagnostic Findings 2023 Patient Name: Charline Newman Procedure Date: 01/28/2024 9:48 AM Date of : 1975 Admit Type: Outpatient Note Status: Finalized Date of : 1975 Admit Type: Outpatient Age: 48 Room: Advanced Endo Gender: Female Note Status: Finalized Procedure: Upper GI endoscopy Indications: Abdominal pain Providers: Juana Parker MD (Doctor), Conor Santizo RN Referring MD: Capo Irizarry NP (Referring MD), Aiyana Bone MD (Referring MD) Medicines: Propofol per Anesthesia Complications: No immediate complications. Procedure: Pre-Anesthesia Assessment: - Prior to the procedure, a History and Physical was performed, and patient medications, allergies and sensitivities were reviewed. The patient's tolerance of previous anesthesia was reviewed. - The risks and benefits of the procedure and the sedation options and risks were discussed with the patient. All questions were answered and informed consent was obtained. - Patient identification and proposed procedure were verified prior to the procedure by the physician and the nurse. The procedure was verified in the procedure room. - Pre-procedure physical examination revealed no contraindications to sedation. After obtaining informed consent, the endoscope was passed under direct vision. All instruments were visually inspected immediately before and after removal from the patient to ensure they are fully intact. Throughout the procedure, the patient's blood pressure, pulse, and oxygen saturations were monitored continuously. The upper GI endoscopy was accomplished without difficulty. The patient tolerated the procedure well. The GIF-H180 Endoscope ([id number]) was introduced through the mouth, and advanced to the second part of duodenum. Findings & Specimens: The examined esophagus was normal. The entire examined stomach was normal. Biopsies were taken with a cold forceps for Helicobacter pylori testing. Verification of patient identification for the specimen was done by the physician and nurse using the patient's name and date. The pathology specimen was placed into Bottle B. The duodenal bulb and second portion of the duodenum were normal. Biopsies for histology were taken with a cold forceps for evaluation of celiac disease. The pathology specimen was placed into Bottle A. Impression: - Normal esophagus. - Normal stomach. Biopsied. - Normal duodenal bulb and second portion of the duodenum. Biopsied. Recommendation: - Await pathology results. - Perform an upper endoscopic ultrasound (UEUS) today. Juana Parker [id number] Procedure: Colonoscopy Indications: Screening for colorectal malignant neoplasm Providers: Alex Carlson MD (Doctor) Referring MD: Mallory Wilson MD (Referring MD) Medicines: See the Anesthesia note for documentation of the administered medications Complications: No immediate complications. Procedure: Pre-Anesthesia Assessment: - ASA Grade Assessment: II - A patient with mild systemic disease. - Prior to the procedure, a History and Physical was performed, and patient medication allergies have been reviewed. The patient's tolerance of previous anesthesia has been reviewed. - Respiratory Examination: clear to auscultation. - CV Examination: normal. - The risks and benefits of the procedure and the sedation options and risks were discussed with the patient. All questions were answered and informed consent was obtained. - Patient identification and proposed procedure were verified prior to the procedure by the physician, the nurse and the lease buyer. The procedure was verified in the pre-procedure area in the procedure room. - The medication list for this patient has been reviewed prior to the procedure and has been determined that the patient may proceed with the planned study. Any medication changes made as a result of the findings of this procedure have been discussed with the patient and/or outside industrial sales representative at the time of discharge from the facility. After I obtained informed consent, the scope was passed under direct vision. All instruments were visually inspected immediately before and after removal from the patient to ensure they are fully intact. Throughout the procedure, the patient's blood pressure, pulse, and oxygen saturations were monitored continuously. The colonoscopy was performed without difficulty. The patient tolerated the procedure well. The quality of the bowel preparation was good. The [employer] ([employer])-[id number] Colonoscope ([id number]) was introduced through the anus and advanced to the terminal ileum. Findings & Specimens: The perianal and digital rectal examinations were normal. A few small and large-mouthed diverticula were found in the sigmoid colon. A 7 mm polyp was found in the cecum. The polyp was likely a serrated polyp. The polyp was removed with a cold snare. Resection and retrieval were complete. The exam was otherwise without abnormality. Medications Administered Home Medications Medication Instructions Recorded Confirmed Last Taken salmon oil 1,000 mg-omega-3 fatty 1 cap PO DAILY ##0 02/28/14 05/29/24 05/28/24 acids 210 mg capsule 5-HTP 18.8 mg-tyrosine 187.5 1 cap PO DAILY 05/29/24 05/29/24 05/28/24 qb-gnjezllja-gwpdqpvx-B6-C-chrom capsule ascorbic acid (vitamin C) 250 mg 250 mg PO DAILY 05/29/24 05/29/24 05/28/24 tablet (Vitamin C) calcium glucarate 500 mg capsule 1 tab-cap PO DAILY 05/29/24 05/29/24 05/28/24 cholecalciferol (vitamin D3) 25 25 mcg PO DAILY 05/29/24 05/29/24 05/28/24 mcg (1,000 unit) tablet (Vitamin D3) magnesium 200 mg tablet 200 mg PO DAILY 05/29/24 05/29/24 05/28/24 multivitamin 1 tab PO DAILY 05/29/24 05/29/24 05/28/24 Active Medications Generic Name Dose Route Start Last Admin Trade Name Freq PRN Reason Stop Dose Admin Sodium Chloride 1,000 mls @ 250 mls/hr 05/29/24 15:28 05/29/24 14:00 Nss IV 05/30/24 15:27 125 mls/hr .Q4H ELMO Administration
[2024-05-29] MEDS: SODIUM CHLORIDE 0.9% 1,000 ML IV SCH (14:00)
[2024-05-29] MEDS ORDERED: MoRPHine SULFATE 2 MG/ML CARP IV PRN (15:28)
[2024-05-29] MEDS ORDERED: ONDANSETRON INJ 2 MG/ML 2 ML VIAL IV PRN (15:28)
[2024-05-29] MEDS ORDERED: POLYETHYLENE (MIRALAX) 17 GM PACK PO PRN (15:28)
[2024-05-29] MEDS: POTASSIUM CHLORIDE / WTR 10 MEQ/100 ML PLCT IV SCH (18:33)
[2024-05-29] MEDS: PIPERACILLIN/TAZOBACTAM 4.5 GM/100 ML BAG IV SCH (18:33)
[2024-05-29] MEDS: ACETAMINOPHEN 325 MG TAB PO PRN (19:31)
[2024-05-30 06:31] LABS: Hematocrit (blood only) 33.2 % (37.0-47.0); Hemoglobin 11.5 g/dl (12.0-16.0); Mean Corpuscular Hemoglobin 30.7 pg (25.0-34.0); Mean Corpuscular Hgb Conc 34.6 g/dL (32.0-36.0); Mean Corpuscular Volume 88.8 fL (80.0-100.0); Platelet Count 128 K/uL (130-400); RDW Coefficient of Variation 12.2 % (11.5-14.5); RDW Standard Deviation 39.5 fL (36.4-46.3); Red Blood Count 3.74 M/uL (4.20-5.40); White Blood Count 8.69 K/ul (4.8-10.8)
[2024-05-30 06:48] LABS: BUN Creatinine Ratio 8.2 (10-20); Calcium 7.2 mg/dl (8.6-10.3); Creatinine Clr Calc Pharmacy 105.6 ml/min; Magnesium 1.7 mg/dl (1.7-2.4); Phosphorus 1.6 mg/dl (2.5-4.9); Potassium 3.6 mmol/L (3.5-5.1)
[2024-05-30] MEDS: POT PHOSPHATE MONOBASIC W/ SOD TAB PO SCH (09:38)
--- NOTE | 2024-05-30 12:19 | Surgery Consultation ---
Date of Consultation May 30, 2024 Assessment & Plan (1) Diverticulitis of sigmoid colon: Her CT images and results were personally viewed and interpreted by myself She does have a fair amount of sigmoid inflammation down in the pelvis without any signs of abscess or pneumoperitoneum She is feeling better and her white blood cell count has gone from 15 down to 8 No plans for any surgical intervention She can have a full liquid diet today and continue her IV antibiotics for another day If she continues to improve and is without fever, will advance her to a low fiber diet tomorrow with possible discharge Will follow History of Present Illness Reason for Consultation: Acute diverticulitis Attending Physician: Graciela Frederick MD History of Present Illness This is a 48-year-old female who was admitted yesterday with acute sigmoid diverticulitis. She states she came in with a day or 2 of lower abdominal pain, sharp in nature. There is no radiation of the pain. It is worse with palpation. No relieving factors. She does states she feels better today with less abdominal pain than when she was admitted yesterday. She denies any nausea or vomiting. She did have a low-grade fever. No chills. She has a history of a colonoscopy in 2022 and was noted with diverticuli at that time. Abdominal surgeries include a . This is her first episode of diverticulitis. Allergies Allergy/AdvReac Type Severity Reaction Status Date / Time No Known Allergies Allergy Unverified 05/29/24 11:53 Home Medications Medication Instructions Recorded Confirmed Type salmon oil 1,000 mg-omega-3 fatty 1 cap PO DAILY ##0 02/28/14 05/29/24 History acids 210 mg capsule 5-HTP 18.8 mg-tyrosine 187.5 1 cap PO DAILY 05/29/24 05/29/24 History fq-izyfvotpo-kvkmztfa-B6-C-chrom capsule ascorbic acid (vitamin C) 250 mg 250 mg PO DAILY 05/29/24 05/29/24 History tablet (Vitamin C) calcium glucarate 500 mg capsule 1 tab-cap PO DAILY 05/29/24 05/29/24 History cholecalciferol (vitamin D3) 25 25 mcg PO DAILY 05/29/24 05/29/24 History mcg (1,000 unit) tablet (Vitamin D3) magnesium 200 mg tablet 200 mg PO DAILY 05/29/24 05/29/24 History multivitamin 1 tab PO DAILY 05/29/24 05/29/24 History Patient History Family History Other Cancer Coronary heart disease Social History Smoking Status: Never smoker Hx Alcohol Use: No Hx Substance Use: No Preferred Language: Kinyarwanda Communication Ability: Effective Pet Nutrition Specialist Required: No Beliefs That Will Affect Care: None Current Living Situation: Spouse and Family Other Information That Helps Us Care for You: No Feels Safe at Home: Yes Safety Concerns: Feels Safe At This Time Assistive Devices: None Review of Systems Constitutional: + fever; no chills Eyes: no blind spots and no dry eyes Ear, Nose, Mouth, Throat: no ear pain and no hearing loss Respiratory: no cough and no dyspnea Cardiovascular: no chest pain and no dyspnea on exertion Gastrointestinal: + abdominal pain; no nausea, no vomiting , no constipation and no diarrhea/loose stools Genitourinary: no dysuria and no urinary urgency Musculoskeletal: no back pain and no neck pain Integumentary: no acne, no sores and no dry skin Neurologic: no gait abnormality and no headache(s) Psychiatric: no behavioral changes and no depression Hematologic / Lymphatic: no easy bleeding and no easy bruising Physical Exam Constitutional: WD/WN, vitals as above Eyes: PERRL, conjunctivae normal, anicteric sclerae ENMT: external ear and nose normal, oropharynx normal Neck: trachea midline, no thyromegaly Respiratory: normal respiratory effort, lungs clear to auscultation Cardiovascular: RRR, no murmur, no edema Gastrointestinal (Abdomen): Inspection/Auscultation: abdomen normal to inspection; abdomen not distended Percussion/Palpation: + abdomen tender (Mild suprapubic and left lower quadrant) and abdomen soft; no guarding and no hernia Musculoskeletal: no cyanosis or clubbing, extremities motor strength 5/5 Skin: no rashes, warm and dry Neurologic: PERRL, EOMI, accommodation nl, no face palsy, no dysarthria Psychiatric: A+Ox3, euthymic affect Results & Data Vital Signs (Past 12 Hours) Vital Signs Temp Pulse Pulse Resp BP BP Pulse Ox 05/30/24 11:14 36.3 C L 85 18 99/62 L 98 05/30/24 07:33 36.9 C 89 18 97/62 L 94 05/30/24 07:05 90 05/30/24 04:00 36.9 C 101 H 18 98/60 L 94 O2 Del Method 05/30/24 11:14 Room Air 05/30/24 07:33 Room Air 05/30/24 07:05 05/30/24 04:00 Room Air PG Care Time/CCT Total # of Minutes Spent Total Time Spent with Patient: Total time spent is greater than 50% in coordination of care (as documented) at patient's floor/unit and/or counseling patient: Coding Level of Care Code 28130 IN/OBS CONSULT LVL 5,80M Diagnoses Diverticulitis of sigmoid colon K57.32
--- NOTE | 2024-05-30 14:06 | Hospitalist Progress Note ---
Date of Service May 30, 2024 Assessment & Plan (1) Diverticulitis of sigmoid colon: Plan Ms. Newman is a 48 year old woman with past medical history remarkable for intermittent palpitations, atrial septal aneurysm, and family history of premature CAD presented to [facility] ED due to abdominal pain and admitted for acute sigmoid diverticulitis. Acute sigmoid diverticulitis Sepsis Pt with tachycardia, hypotension, fever, leukocytosis reviewed egd from 2023 and colonoscopy from 2022, known diverticulosis, polyp removed repeat c-scope in 2027 CT with extensive inflammation, however, no perforation noted or abscess, no signs of peritonitis Blood cultures NGTD continue IV zosyn analgesia prn general surgery consulted, appreciate recs Improving Sinus tachycardia Intermittent palpitations likely in setting of above, however, reports of premature CAD in family and just has CT coronary completed but not released yet denies any chest pain or palpitations Monitor on Tele Diet: advancing as tolerated DVT prophylaxis: ambulate as tolerated, scds Dispo: Home once medically stable Admission and Anticipated Discharge Date Admission Date: May 29, 2024 Subjective pt was seen in the AM Asking about discharge Discussion of the severity of her infection Agreeable to a surgery consult notes she had bloating overnight Review of Systems Review of Systems: All systems reviewed & are unremarkable except as noted in Subjective Physical Exam Physical Exam: General: Alert, oriented. No acute distress Psych: Appropriate mood and affect HEENT: NC/AT CV: RRR, Normal s1, s2 Resp: Breath sounds clear bilaterally, no increased effort of breathing Abdomen: BS+. Soft, nontender Extremities: No edema in lower extremities bilaterally. Results & Data Results & Data Vital Signs (Past 12 Hours) Vital Signs Temp Pulse Pulse Resp BP BP Pulse Ox 05/30/24 11:14 36.3 C L 85 18 99/62 L 98 05/30/24 07:33 36.9 C 89 18 97/62 L 94 05/30/24 07:05 90 05/30/24 04:00 36.9 C 101 H 18 98/60 L 94 O2 Del Method 05/30/24 11:14 Room Air 05/30/24 07:33 Room Air 05/30/24 07:05 05/30/24 04:00 Room Air
--- NOTE | 2024-05-30 14:15 | Electrocardiogram Report ---
Test Reason : Blood Pressure : */* mmHG Vent. Rate : 103 BPM Atrial Rate : 103 BPM P-R Int : 116 ms QRS Dur : 84 ms QT Int : 332 ms P-R-T Axes : 75 76 70 degrees QTcB Int : 434 ms Sinus tachycardia Otherwise normal ECG No previous ECGs available Confirmed by Donnie Palomares ([id number]) on 05/30/2024 2:15:38 PM Referred By: REFERRED SELF Confirmed By: Donnie Palomares
[2024-05-30] MEDS: NITROGLYCERIN SL 0.4 MG/TAB TAB SL STA (19:27)
[2024-05-30] MEDS ORDERED: POTASSIUM CHLORIDE CRTAB 20 MEQ TABCR PO STA (19:45)
--- NOTE | 2024-05-30 19:47 | Communication Note ---
Date of Service: May 30, 2024 Patient complained of substernal tightness relieved by nitroglycerin. Patient worried about heart attack given strong history CAD. rpt EKG as per my interpretation (05/31, 19:21) : rate 80, NSR, normal axis, T wave flattening inferior leads 2 troponins negative Patient later complained of SOB. Chest x-ray showed minimal congestion AP Transient chest pain Fluid overload Hold IVF Lasix 1 dose TTE
[2024-05-30] MEDS: MAGNESIUM SULFATE / D5W 1 GM/100 ML BAG IV SCH (19:53)
[2024-05-30] MEDS: NSS + 20MEQ KCL 20 MEQ/1,000 ML BAG IV ONE (20:13)
[2024-05-30 20:27] LABS: Partial Thromboplastin Time 28 Seconds (21-31)
[2024-05-30] MEDS ORDERED: NITROGLYCERIN SL 0.4 MG/TAB TAB SL PRN (21:03)
--- NOTE | 2024-05-30 21:13 | XRay Report ---
EXAM: XR chest 1V portable CLINICAL HISTORY: CP. TECHNIQUE: An X-ray image of the chest is obtained in AP portable projection. COMPARISON: No prior studies are available for comparison. FINDINGS: Marked rotation of the patient is noted. Pulmonary Parenchyma: Bilateral prominent bronchovascular markings are noted . A few nodular infiltrates are seen in the right suprahilar region. No evidence of consolidation or collapse. Left CP angle is blunt likely due to mild pleural effusion. The right CP angle is intact. Heart and Mediastinum: Heart size and shape are normal. No mediastinal widening or masses. No hilar or mediastinal lymphadenopathy. Bony Thorax: The bony thorax appears intact without fractures or deformities. Soft Tissues: Soft tissues overlying the chest wall are unremarkable. IMPRESSION: 1. Bilateral prominent bronchovascular markings are noted with a few nodular infiltrates in the right suprahilar region. 2. Blunt left CP angle likely due to mild pleural effusion. 3. These changes might be due to acute infectious changes. Please evaluate clinically to rule out acute pulmonary congestion. Electronically signed by Sloan Morrow 05-30-2024 9:12 PM
[2024-05-30] MEDS: oxyCODONE HCL IR 5 MG TAB (IMMEDIATE RELEASE) PO PRN (21:27)
[2024-05-30] MEDS: LEVALBUTEROL 1.25 MG/3 ML NEB NEB STA (22:14)
[2024-05-30] MEDS: IPRATROPIUM BROMIDE NEB SOLN 0.02% 0.5MG/2.5ML VIAL INH STA (22:19)
[2024-05-30] MEDS: FUROSEMIDE INJ 20 MG/2 ML VIAL IV ONE (22:24)
[2024-05-30] MEDS: hydrOXYzine HCl 10 MG TAB PO STA (23:04)
[2024-05-30] MEDS: hydrOXYzine HCl 10 MG TAB PO PRN (23:33)
[2024-05-31 07:02] LABS: Basophils # (auto) 0.01 K/uL (0.00-0.20); Basophils % (auto) 0.2 %; Eosinophils # (auto) 0.12 K/uL (0.00-0.50); Eosinophils % (auto) 2.2 %; Hematocrit (blood only) 32.9 % (37.0-47.0); Hemoglobin 11.5 g/dl (12.0-16.0); Immature Granulocytes # (auto) 0.01 K/uL (0.01-0.20); Immature Granulocytes % (auto) 0.2 %; Lymphocytes # (auto) 0.98 K/uL (1.20-3.40); Lymphocytes % (auto) 18.3 %; Mean Corpuscular Hemoglobin 30.7 pg (25.0-34.0); Mean Corpuscular Volume 87.7 fL (80.0-100.0); Mean Platelet Volume 10.1 fL (9.4-12.4); Monocytes # (auto) 0.47 K/uL (0.11-0.59); Monocytes % (auto) 8.8 %; Neutrophils # (auto) 3.76 K/uL (1.40-6.50); Neutrophils % (auto) 70.3 %; Platelet Count 142 K/uL (130-400); RDW Standard Deviation 38.9 fL (36.4-46.3); Red Blood Count 3.75 M/uL (4.20-5.40); White Blood Count 5.35 K/ul (4.8-10.8)
[2024-05-31 07:24] LABS: Albumin Globulin Ratio 1.4 (0.9-2); Albumin Level 3.3 gm/dl (3.4-5.0); BUN Creatinine Ratio 6.2 (10-20); Bilirubin,Total 0.6 mg/dl (0.2-1.0); Calcium 7.8 mg/dl (8.6-10.3); Creatinine Clr Calc Pharmacy 99.1 ml/min; Globulin 2.3 gm/dl (2.5-4.0); Magnesium 2.3 mg/dl (1.7-2.4); Phosphorus 3.2 mg/dl (2.5-4.9); Potassium 3.4 mmol/L (3.5-5.1); Total Protein 5.6 gm/dl (6.0-8.3)
[2024-05-31] MEDS: POTASSIUM CHLORIDE CRTAB 20 MEQ TABCR PO STA (09:01)
[2024-05-31] MEDS: CALCIUM GLUCONATE 1,000 MG/60 ML BAG IV SCH (09:46)
--- NOTE | 2024-05-31 09:48 | Surgery Progress Note ---
Date of Service May 31, 2024 Assessment & Plan (1) Diverticulitis of sigmoid colon: Plan: She is improved She is afebrile without tachycardia Advance to low fiber diet She tolerates that she can be discharged with 2 weeks of p.o. antibiotics She will follow-up with her PCP as an outpatient and they can have the discussion whether or not she wants to see a surgeon in the future Surgery will sign off at this time, please call with any questions or concerns Admission and Anticipated Discharge Date Admission Date: May 29, 2024 Subjective Patient seen and examined. Feels much better than yesterday. Still with some abdominal pain but improved. Afebrile. Tolerating clear liquids. Review of Systems Constitutional: + fever; no chills Eyes: no blind spots and no dry eyes Ear, Nose, Mouth, Throat: no ear pain and no hearing loss Respiratory: no cough and no dyspnea Cardiovascular: no chest pain and no dyspnea on exertion Gastrointestinal: + abdominal pain; no nausea, no vomiting , no constipation and no diarrhea/loose stools Genitourinary: no dysuria and no urinary urgency Musculoskeletal: no back pain and no neck pain Integumentary: no acne, no sores and no dry skin Neurologic: no gait abnormality and no headache(s) Psychiatric: no behavioral changes and no depression Hematologic / Lymphatic: no easy bleeding and no easy bruising Physical Exam Constitutional: WD/WN, vitals as above Eyes: PERRL, conjunctivae normal, anicteric sclerae ENMT: external ear and nose normal, oropharynx normal Neck: trachea midline, no thyromegaly Respiratory: normal respiratory effort, lungs clear to auscultation Cardiovascular: RRR, no murmur, no edema Gastrointestinal (Abdomen): Inspection/Auscultation: abdomen normal to inspection; abdomen not distended Percussion/Palpation: + abdomen tender (Mild suprapubic and left lower quadrant) and abdomen soft; no guarding and no hernia Musculoskeletal: no cyanosis or clubbing, extremities motor strength 5/5 Skin: no rashes, warm and dry Neurologic: PERRL, EOMI, accommodation nl, no face palsy, no dysarthria Psychiatric: A+Ox3, euthymic affect Results & Data Vital Signs (Past 12 Hours) Vital Signs Temp Pulse Pulse Resp BP Pulse Ox O2 Del Method 05/31/24 07:51 36.8 C 97 H 18 110/72 96 Room Air 05/31/24 05:49 89 05/31/24 02:58 36.9 C 88 14 95/61 L 95 Room Air 05/30/24 23:00 36.7 C 88 18 95 Room Air 05/30/24 22:21 99 H 18 98 Room Air 05/30/24 21:57 79 PG Care Time/CCT Total # of Minutes Spent Total Time Spent with Patient: Total time spent is greater than 50% in coordination of care (as documented) at patient's floor/unit and/or counseling patient: Coding Level of Care Code 99952 SUB INP/OBS CARE 04/02MIN Diagnoses Diverticulitis of sigmoid colon K57.32
[2024-05-31 11:11] VITALS: RESP 20; TEMP 98.1; O2SAT 95
--- NOTE | 2024-05-31 13:29 | Electrocardiogram Report ---
Test Reason : Blood Pressure : */* mmHG Vent. Rate : 88 BPM Atrial Rate : 88 BPM P-R Int : 112 ms QRS Dur : 80 ms QT Int : 338 ms P-R-T Axes : 103 119 140 degrees QTcB Int : 408 ms Suspect arm lead reversal, interpretation assumes no reversal Normal sinus rhythm Left posterior fascicular block Abnormal ECG When compared with ECG of 29-May-2024 18:41, QRS axis Shifted right T wave inversion now evident in Lateral leads Confirmed by Donnie Palomares ([id number]) on 05/31/2024 1:29:03 PM Referred By: REFERRED SELF Confirmed By: Donnie Palomares
--- NOTE | 2024-05-31 13:29 | Electrocardiogram Report ---
Test Reason : Blood Pressure : */* mmHG Vent. Rate : 82 BPM Atrial Rate : 82 BPM P-R Int : 114 ms QRS Dur : 82 ms QT Int : 368 ms P-R-T Axes : 73 58 38 degrees QTcB Int : 429 ms Normal sinus rhythm Normal ECG When compared with ECG of 30-May-2024 19:18, (unconfirmed) Left posterior fascicular block is no longer Present T wave inversion no longer evident in Lateral leads Confirmed by Donnie Palomares ([id number]) on 05/31/2024 1:29:10 PM Referred By: REFERRED SELF Confirmed By: Donnie Palomares
[2024-05-31] MEDS: LEVALBUTEROL 1.25 MG/3 ML NEB ONE (14:42)
[2024-05-31] MEDS: ALBUT/IPRATROP 3MG/0.5MG NEB 3 ML VIAL ONE (14:42)
--- NOTE | 2024-05-31 14:43 | Discharge Summary ---
Discharge Summary Date of Service May 31, 2024 Principal Dx & Hospital Course #1 = Principal Diagnosis (1) Diverticulitis of sigmoid colon: Plan Ms. Newman is a 48 year old woman with past medical history remarkable for intermittent palpitations, atrial septal aneurysm, and family history of premature CAD who presented to [facility] ED due to abdominal pain and was admitted for severe acute sigmoid diverticulitis. Acute sigmoid diverticulitis Sepsis Pt with tachycardia, hypotension, fever, leukocytosis egd from 2023 and colonoscopy from 2022, known diverticulosis, polyp removed repeat c-scope in 2027 CT on admission with extensive inflammation, however, no perforation noted or abscess, no signs of peritonitis Blood cultures NGTD treated with IV zosyn in the hospital analgesia prn general surgery consulted, appreciate recs. Dr Robert Fischer recommended/stated the following on the day of discharge: "...She is improved She is afebrile without tachycardia Advance to low fiber diet She tolerates that she can be discharged with 2 weeks of p.o. antibiotics She will follow-up with her PCP as an outpatient and they can have the discussion whether or not she wants to see a surgeon in the future..." On the day of discharge, pt was anxious for discharge home. She tolerated the low fiber diet without issue. She was discharged home with 14 days of po Flagyl 500mg TID and cefdinir 300mg BID with a daily probiotic. Close PCP, General surgery and GI followup after discharge. Sinus tachycardia Intermittent palpitations likely in setting of above, however, reports of premature CAD in family and just has CT coronary completed but not released yet denies any chest pain or palpitations Episode of chest pain overnight the day before discharge EKG with NSR, echo ordered but could not be completed before discharge. Pt anxious for discharge. She did receive a dose of IV lasix overnight and noted significant output Close PCP follow up, consider Zio patch if not yet done and close cardiology follow up Notes For Next Care Provider As above Medication Changes From Visit per general surgery: cefdinir and flagyl x 14 days Probiotic also ordered Admission HPI Per Admitting Provider Ms. Newman is a 48 year old woman with past medical history remarkable for intermittent palpitations, atrial septal aneurysm, and family history of premature CAD presented to [facility] ED due to abdominal pain. Patient states she was in her normal state of health, when she noted while eating breakfast she experienced sudden onset LLQ pain that progressively worsened with associated nausea and vomiting from the pain. She states that she has never experienced any episode like this previously. She reports that a colonoscopy 2022 revealed diverticulosis. She endorses a high fiber diet and freuqent daily bowel movements without noted constipation. She states her blood pressures are usually in the low 100s-110s and her heart rates on her apple watch are in he 70-80s. She states she has some subjective fever, but her nausea has resolved and she actually feels return of appetite at this time. In the ED, vitals were notable for BP of 90s-100, HR of 90s-140s and O2 sat of high 90s on Ra. TMAX 37.9 Labs with leukocytosis to 15, lactate 0.5 blood cultures ordered Imaging revealed CT with acute sigmoid diverticulitis. ED interventions: zosyn 2 L Patient to be admitted [facility] for further evaluation and management of acute sigmoid diverticulitis Admission Exam Per Admitting Provider GENERAL APPEARANCE: AxOx4, generally well-appearing female, mildly anxious HEENT: NC, AT. MMM. EOMI, clear conjunctiva, oropharynx clear. NECK: Supple without lymphadenopathy. No stiffness or restricted ROM. HEART: tachycardic regular rhythm, normal S1/S1, no m/r/g LUNGS: CTAB, moving air well. No crackles or wheezes are heard. ABDOMEN: Soft, tenderness in LUQ/LLQ . BACK: No CVAT, no obvious deformity. EXTREMITIES: Without cyanosis, clubbing or edema. NEUROLOGICAL: Grossly nonfocal. Alert and oriented, moving all 4 extremities. CN not formally tested but appear grossly intact. Skin: Warm and dry without any rash. Discharge Exam General: Alert, oriented. No acute distress Psych: Appropriate mood and affect HEENT: NC/AT CV: RRR, Normal s1, s2 Resp: Breath sounds clear bilaterally, no increased effort of breathing Abdomen: BS+. Soft, nontender Extremities: trace edema in lower extremities bilaterally. Updated Medication List Medication Instructions Recorded Confirmed Type salmon oil 1,000 mg-omega-3 fatty 1 cap PO DAILY ##0 02/28/14 05/29/24 History acids 210 mg capsule 5-HTP 18.8 mg-tyrosine 187.5 1 cap PO DAILY 05/29/24 05/29/24 History [id number] capsule ascorbic acid (vitamin C) 250 mg 250 mg PO DAILY 05/29/24 05/29/24 History tablet (Vitamin C) calcium glucarate 500 mg capsule 1 tab-cap PO DAILY 05/29/24 05/29/24 History cholecalciferol (vitamin D3) 25 25 mcg PO DAILY 05/29/24 05/29/24 History mcg (1,000 unit) tablet (Vitamin D3) magnesium 200 mg tablet 200 mg PO DAILY 05/29/24 05/29/24 History multivitamin 1 tab PO DAILY 05/29/24 05/29/24 History Saccharomyces boulardii 250 mg 250 mg PO DAILY #30 caps 05/31/24 Rx capsule (Florastor) cefdinir 300 mg capsule 300 mg PO BID #28 caps 05/31/24 Rx metronidazole 500 mg tablet 500 mg PO Q8H 14 days #42 tabs 05/31/24 Rx Hospital Stay Data Consultations 05/29/24 13:09 ED Decision to Admit Stat 05/30/24 09:50 Consult General Surgery Routine Diagnostic Imagining Performed 05/29/24 10:32 CT Abd and Pelvis [CT abd pelvis IV con only] Stat Abdomen/Pelvis CT 05/29/24 10:32 CT OF THE ABDOMEN AND PELVIS WITH CONTRAST CLINICAL HISTORY: Lower abdominal pain and diarrhea. Fevers. COMPARISON STUDY: None. TECHNIQUE: Following IV administration of 94 mL of Optiray, axial images of the abdomen and pelvis were obtained from the lung bases to the proximal femurs. Images were reviewed in the axial, sagittal, and coronal planes. IV contrast was administered without complication. Automated exposure control was utilized for the study. A dose lowering technique was utilized adhering to the principles of ALARA. CT DOSE: 780.67 mGy.cm FINDINGS: Visualized portions of the lung bases are unremarkable. No pneumatosis, free air or portal venous gas is present. An 8 mm hypodense medial segment hepatic lesion represents a cyst. No biliary or pancreatic ductal dilatation. Spleen, adrenal glands, kidneys and pancreas are unremarkable. Mild asymmetric wall thickening of the mid to distal left ureter is related to diverticulitis. There are no urinary calculi. There is no evidence for a bowel obstruction. The appendix is normal. Sigmoid diverticulosis is noted. There is circumferential wall thickening of the mid to distal sigmoid colon with moderate to extensive pericolonic inflammation which extends into the sigmoid mesentery and a small amount of fluid. No fluid collection is present. There is no extraluminal gas. Major vasculature is patent. There is no lymphadenopathy. IMPRESSION: Findings consistent with acute sigmoid diverticulitis. Sigmoid colon wall thickening with pericolonic fluid and moderate to extensive inflammation. No free air or abscess. ACT 112: Negative or not required by law. Electronically signed by: Lamont Ch M.D. 05/29/2024 11:51 AM Chest X-Ray 05/30/24 19:15 EXAM: XR chest 1V portable CLINICAL HISTORY: CP. TECHNIQUE: An X-ray image of the chest is obtained in AP portable projection. COMPARISON: No prior studies are available for comparison. FINDINGS: Marked rotation of the patient is noted. Pulmonary Parenchyma: Bilateral prominent bronchovascular markings are noted . A few nodular infiltrates are seen in the right suprahilar region. No evidence of consolidation or collapse. Left CP angle is blunt likely due to mild pleural effusion. The right CP angle is intact. Heart and Mediastinum: Heart size and shape are normal. No mediastinal widening or masses. No hilar or mediastinal lymphadenopathy. Bony Thorax: The bony thorax appears intact without fractures or deformities. Soft Tissues: Soft tissues overlying the chest wall are unremarkable. IMPRESSION: 1. Bilateral prominent bronchovascular markings are noted with a few nodular infiltrates in the right suprahilar region. 2. Blunt left CP angle likely due to mild pleural effusion. 3. These changes might be due to acute infectious changes. Please evaluate clinically to rule out acute pulmonary congestion. Electronically signed by Sloan Morrow 05-30-2024 9:12 PM Pending Results Patient Have Any Pending Studies at Discharge: No Discharge Instructions Given to Patient (Per Discharging Provider) Charline, You were seen and treated for sepsis as a result of an acute severe diverticulitis infection. We treated you with IV antibiotics and your symptoms improved. You were seen by the general surgeon who recommended discharge home with 2 weeks of oral antibiotics. We are discharging you home with oral cefdinir to take twice a day and oral metronidazole 500mg three times a day. We also prescribed a probiotic to take while on the antibiotics. Please keep close follow up with your primary care provider after discharge. Consider close followup with a general surgeon as well. You will also need followup with a academic assistant. Please do not hesitate to come back to the emergency room if your symptoms worsen or return. It was a pleasure taking care of you while you were here. Total Time Total Time Spent Total Time Spent (In Minutes): 60
[2024-05-31 14:56] VITALS: BP 98/60
[2024-05-31 15:30] VITALS: PULSE 100
== END 2024-05-31 15:29 | disposition home or self-care (01) | DRG 872 ==
LOC: ED 10:06 → 2N 14:01 → SUATTDRO 14:01 → 2N 14:45